=== PATIENT | male | born 1940 | race Caucasian/White ===

== ENCOUNTER 2023-08-23 13:18 | Outpatient (AMB) | payer MEDICARE, SELFPAY ==
[2023-08-23 13:19] VITALS: BP 128/70; PULSE 106; TEMP 36.3; O2SAT 96; BMI 28.1
--- NOTE | 2023-08-23 13:19 | MHC.OFFWIV ---
Intake Vital Signs 08/23/23 13:19 Height 5 ft 7 in Weight 179 lb 6 oz BMI 28.1 BP 128/70 Blood Pressure Location Rt brachial Position Sitting Pulse 106 H Pulse Source Pulse Oximeter Temp 97.4 F Temp Source Temporal Artery Scan Pulse Oximetry (%) 96 Oxygen Delivery Method Room Air Intake Visit Reasons: est/ openwound on side stomach Intake Note: Pt presents to the office today for a wound that reopened where he had a prior colostomy bag 7 years ago. Patient Tobacco Use Status: Never used Tobacco Allergies No Known Allergies Allergy (Verified 08/23/23 13:31) Medication List - Last Reconciled 08/23/23 by Audrey Bentley, FUEL CELL DESIGNER- alendronate 70 mg PO QWEEK aspirin (Adult Aspirin Regimen) 81 mg PO DAILY bicalutamide 50 mg PO DAILY clopidogrel 75 mg PO DAILY empagliflozin (Jardiance) 10 mg PO DAILY methenamine hippurate 1 g PO BID metoprolol succinate ER 50 mg PO DAILY omeprazole 40 mg PO DAILY telmisartan 80 mg PO DAILY HPI HPI Comments History of Present Illness Details Here today with complaints of an open area to his right lower quadrant reports that he had abdominal surgery 7 years ago. He has a scar in this area. A few days ago he noticed that the scar was opening. He has been applying Neosporin to the area. He denies any fever, chills. PFSH Social History Patient Tobacco Use Status: Never used Tobacco Review of Systems Const All systems reviewed & are unremarkable except as noted in HPI and below Physical Exam Vital Signs: Last Vital Signs Temp 97.4 F 08/23/23 13:19 Pulse 106 H 08/23/23 13:19 BP 128/70 08/23/23 13:19 Pulse Ox 96 08/23/23 13:19 Oxygen Delivery Method Room Air 08/23/23 13:19 BMI result Body Mass Index 28.1 GI Abdomen image: 1. scar with very superficial open area from friction caused by belt. There is some mild erythema extending beyond the well healed scar with some assoc warmth. No drainage. Area cleansed, Bacitracin and DCD applied. Assessment & Plan Assessment & Plan (1) Cellulitis: Code(s): L03.90 - Cellulitis, unspecified Qualifiers: Site of cellulitis: trunk Site of cellulitis of trunk: abdominal wall Qualified Code(s): L03.311 - Cellulitis of abdominal wall Plan: . Medications: New doxycycline hyclate 100 mg PO BID 7 days 14 caps 0RF Patient Instructions: Advised patient to avoid further friction. Remove belt. We are pants w/ soft waist. Cleanse the area with soap and water daily. Dry and then apply bacitracin and a dry clean dressing daily. Take antibiotics as directed. Return to the office in 1 week for re-evaluation, sooner as needed. Coding Level of Care Code Est Pt Level 3 (35540) Diagnoses Cellulitis of abdominal wall L03.311 Site of cellulitis: trunk Site of cellulitis of trunk: abdominal wall
== END 2023-08-23 13:34 | disposition home or self-care (01) ==
PROVIDERS: PCP Physician Assistant Medical; Visit Provider Nurse Practitioner Family
DX: L03.311 Cellulitis of abdominal wall (principal)
CPT/HCPCS: 99203; 99213

== ENCOUNTER 2023-11-18 09:40 | Outpatient (REF) | payer MEDICARE, SELFPAY ==
[2023-11-18 14:54] LABS: MANUAL DIFF FLAG NO
[2023-11-18 15:11] LABS: Basophils Percent Auto 0.8 % (0-2); Eosinophils Absolute Auto 0.2 X10*3/uL (0.0-0.4); Eosinophils Percent Auto 4.3 % (0-4); Hematocrit 36.7 % (42.0-52.0); Hemoglobin 12.5 g/dl (14.0-18.0); Imm Gran Abs Auto 0.03 X10*3/uL (0.00-0.03); Imm Gran Pct Auto 0.8 % (0.0-0.4); Lymphocytes Absolute Auto 0.6 X10*3/uL (1.2-4.9); Mean Corpuscular HGB Conc 34.1 g/dl (31.0-36.0); Mean Corpuscular Hemoglobin 28.1 pg (27.0-33.0); Mean Corpuscular Volume 82.5 fL (80.0-98.0); Monocytes Absolute Auto 0.4 X10*3/uL (0.1-1.2); Monocytes Percent Auto 9.2 % (2-11); Neutrophils Absolute Auto 2.7 x10*3/uL (2.0-8.3); Neutrophils Percent Auto 68.9 % (45-73); Platelet Count 124 X10*3/uL (160-400); Red Blood Count 4.45 X10*6/uL (4.60-5.80); Red Cell Distribution Width 14.2 % (11.0-16.0); White Blood Count 3.9 X10*3/uL (4.8-10.8)
[2023-11-18 15:53] LABS: Alanine Aminotransferase 14 U/L (0-40); Albumin Level 4.3 g/dL (3.5-5.0); Alkaline Phosphatase 85 U/L (39-117); Anion Gap 13 (12-20); Aspartate Amino Transferase 15 U/L (5-37); Bilirubin Total 0.4 mg/dL (0.0-1.0); Blood Urea Nitrogen 29 mg/dL (9-16); Calcium 9.6 mg/dL (8.4-10.2); Carbon Dioxide 24 mmol/L (22-29); Chloride 105 mmol/L (96-108); Estimated Glomerular Filt Rate > 60; Glucose Random 131 mg/dL (60-115); Potassium 4.1 mmol/L (3.3-5.1); Sodium 138 mmol/L (135-145); Total Protein 6.8 g/dL (6.5-8.0)
[2023-11-18 16:05] LABS: Estimated Average Glucose 126 mg/dL
[2023-11-18 16:11] LABS: TSH reflex Free T4 0.88 uIU/mL (0.32-4.0)
== END 2023-11-18 09:41 | disposition home or self-care (01) ==
LOC: HO.WFDLDS 09:40
PROVIDERS: PCP Physician Assistant Medical; Visit Provider Physician Assistant Medical
DX: I25.10 Atherosclerotic heart disease of native coronary artery without angina pectoris (principal); E78.00 Pure hypercholesterolemia, unspecified; E11.69 Type 2 diabetes mellitus with other specified complication; R42 Dizziness and giddiness; T81.30XA Disruption of wound, unspecified, initial encounter; M81.0 Age-related osteoporosis without current pathological fracture; C61 Malignant neoplasm of prostate; R41.3 Other amnesia
CPT/HCPCS: 36415; 80053; 83036; 84443; 85025; 96127; 99202

== ENCOUNTER 2023-11-18 09:40 | Outpatient (AMB) | payer MEDICARE, SELFPAY ==
--- NOTE | 2023-11-18 09:53 | MHC.PC.OV ---
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 Dizziness, hearing loss. See's ENT in April. Structural Drafter Required: No Accompanied by: Daughter Allergies No Known Allergies Allergy (Verified 08/23/23 13:31) Tobacco use date assessed: 11/18/23 Fall risk assessment: 1 Fall in past year Last assessed Fall Risk: 11/18/23 Dental Screening Dental Screen Date: 11/18/23 Did you have a dental visit in the last 12 months?: No Did you have a dental problem in the last 6 months where you did not have access to dental care?: No Was dental information given to patient?: Patient declined (Has dentures) HPI HPI Comments History of Present Illness Details This is an 83-year-old male with a past medical history of anemia, coronary artery disease, BPH, type 2 diabetes, hypertension, gastric ulcers, nodule of the right lung, osteoporosis and prostate cancer presenting to [facility]. He transferred from Dr. Negro at [facility]. He is here with his daughter. His other daughter, Pat Frost, wrote a detailed note to me. She usually accompanies him to appointments. Coronary artery disease-His statin was discontinued on the basis that it may be causing dizziness. Pat texted that his latest LDL level is 9. Patient had cardiac catheterizations 06/2022 with stents placed to RCA x2. Note indicates 2 additional stents were needed due to RCA dissection. He had an other cardiac catheterization due to chest pain in 12/18/2022. One of the stents had failed so he had stent #5 placed to RCA. Chest pain improved but did not resolve. Underwent another cardiac catheterization 07/19/2023. Chest pain escalated and so he had another catheterization on 10/20/2023 and they placed a stent to the LAD. Since then he has been chest pain-free. Quit smoking 47 years ago. Quit drinking 45 years ago. He has been evaluated for episodes of dizziness which started in 03/20/2023. Reportedly had a CT angio which revealed vertebral artery stenosis, but vascular said it had plenty of collateral circulation and was not of concern. Dizziness was episodic. Occurs for a few weeks and goes away. The dizziness initially improved after stopping his statin, but it came back. He saw Neurology at [facility] 10/14/2023, and they have refer to ENT for dizziness and hearing loss, but E[facility] of [facility] can not get him in for 6 months. Patient says dizziness is triggered by rapid head movements but can just happen when he is sitting. He describes it as feeling off balance. Patient also says he has had chronic hearing loss which worsened specifically in the left ear over the past couple of months. He endorses chronic tinnitus. He thinks this has become worse, too. His neurologist also referred him for a neuropsych evaluation due to memory issues. He has a hard time remembering fine details and following his medical history. The patient had diverticulitis which ruptured in 2019. He had a colostomy bag for about 3 months. He is seeing a plastic surgeon regarding his scar because of wound dehiscence. The appointment is 12/16/2023. Type II DM-managed by previous PCP. He uses a glucometer. AM BG never higher than 145. Last a1c 6.5%. Pat texted he is due. Recurrent UTIs, prostate cancer-diagnosed with prostate cancer in 2021. In remission. Followed by Dr. Scott. Osteoporosis-Treated with alendronate. They were questioning this diagnosis and whether or not he needs to take this medication. They said that he began this medication because of the antiandrogen treatment for prostate cancer. Unsure when last bone density test was done. ROS: Constitutional: No unexplained weight loss, fever, chills. Eyes: No vision changes Respiratory: No shortness of breath or cough. Cardiovascular: No chest pain or pedal edema. Gastrointestinal: No anorexia, nausea, vomiting or diarrhea. No abdominal pain Neurologic: No headache, syncope, unilateral weakness, ataxia Physical exam: Constitutional: Alert, in no distress. Head: Normocephalic. Eyes: Pupils are equal, round and reactive to light. Extraocular muscles intact. Ear, Nose and Throat: Canals clear. TMs normal. Normal nasal mucosa. No nasal discharge. No oral lesions. Neck: Supple, Full range of motion. No lymphadenopathy. No palpable thyroid masses. Respiratory: Clear to auscultation. Cardiovascular: S1 S2 regular. No murmurs. Gastrointestinal: Abdomen soft, non-tender, non-distended. Normal bowel sounds. No palpable masses. Scar on right lower abdomen with dehiscence. No bleeding, discharge, erythema or edema. Neurologic: No focal neurological deficits Extremities: Warm and well perfused. No clubbing, cyanosis or edema. Psychiatric: Normal mood and affect [facility] Medical History (Updated 11/19/23 @ 08:56 by GHAZAL Steinberg) Gastric ulcer Memory loss Bilateral hearing loss Bilateral tinnitus Lung nodule Anemia Prostate cancer Osteoporosis History of diverticulitis Wound dehiscence Dizziness Type 2 diabetes mellitus HLD (hyperlipidemia) CAD (coronary artery disease) Surgical History (Updated 11/19/23 @ 08:51 by GHAZAL Steinberg) Hx of bladder repair surgery Knee joint replacement status History of coronary artery stent placement History of colostomy reversal Social History Housing: Apartment Patient Tobacco Use Status: Never used Tobacco e-Cigarette/Vaping Use: Never Used Second Hand Smoke Exposure: No service: No Current occupational status: retired Current occupational exposures/hazards: No Cognitive needs: Yes (Memory issues) Hearing needs: Yes (Hearing loss ) Vision needs: Yes (glasses) Questionnaire PHQ-9 Over the last 2 weeks, how often have you been bothered by any of the following problems? 1. Little interest or pleasure in doing things: not at all 2. Feeling down, depressed, or hopeless: several days 3. Trouble falling or staying asleep, or sleeping too much: nearly every day 4. Feeling tired or having little energy: more than half the days 5. Poor appetite or overeating: not at all 6. Feeling bad about yourself - or that you are a failure or have let yourself or your family down: not at all 7. Trouble concentrating on things, such as reading the newspaper or watching television: nearly every day 8. Moving or speaking so slowly that other people could have noticed. Or the opposite - being so fidgety or restless that you have been moving around a lot more than usual: not at all 9. Thoughts that you would be better off or of hurting yourself in some way: not at all Total score: 9 Depression Screening Interpretation: Positive Depression Screening Done: Yes 30049 - PHQ-9 Billing: Yes Source: Developed by Drs. Ryan López, Jordan Camp and colleagues, with an educational katy from [employer]. Thrive Questionnaire Date Thrive assessed: 11/18/23 I am a: Patient Within the past 12 months, did the food you bought not last and you didn't have the money to get more?: Never true Within the past 12 months, did you worry whether your food would run out before you got money to buy more?: Never true Do you have trouble paying for medicines?: No Do you have trouble getting transportation to medical appointments?: No Do you have trouble paying your heating and electricity bill?: No Do you have trouble taking care of your child, family member or friend?: No Do you have trouble with day-to-day activities such as bathing, preparing meals, shopping, managing finances, etc.?: No Are you currently unemployed and looking for a job?: No Are you interested in more education?: No Please select the resources that you would like help with: None Currently or been in a relationship where the following occur: No concerns reported THRIVE Score: 0 AUDIT C Alcohol Use Questionnaire (AUDIT-C) 1. How often do you have a drink containing alcohol?: Never 3. How often do you have six or more drinks on one occasion?: Never Total Score: 0 NINA-7 AMB Questionnaire NINA-7 Date NINA - 7 assessed: 11/18/23 Feeling nervous, anxious, or on edge: 2 = More than half the days Not being able to stop or control worryin = Not at all Worrying too much about different things: 0 = Not at all Trouble relaxin = Not at all Being so restless that it is hard to sit still: 0 = Not at all Becoming easily annoyed or irritable: 0 = Not at all Feeling afraid as if something awful might happen: 0 = Not at all Total NINA-7 score (0-4 normal; 5-9 mild; 10-14 moderate; 15-21 severe): 2 Source: Developed by Drs. Ryan López, Jordan Camp and colleagues, with an educational katy from [employer]. NINA-7 Assessment Billing NINA-7 Assessment Tool: NINA-7 Assessment 72164 Physical exam (Primary Care) Vital Signs: Last Vital Signs Temp 97.6 F 11/18/23 10:03 Pulse 84 11/18/23 10:03 Resp 16 11/18/23 10:03 BP 108/70 11/18/23 10:03 Pulse Ox 97 11/18/23 10:03 Oxygen Delivery Method Room Air 11/18/23 10:03 BMI result Body Mass Index 28.0 Tobacco/Smoking Status: Tobacco use Status Tobacco use date assessed 11/18/23 11/18/23 09:59 Patient Tobacco Use Status Never used Tobacco 11/18/23 09:59 e-Cigarette/Vaping Use Never Used 11/18/23 09:59 PHQ-9: PHQ-9 Score PHQ-9: Total score 9 11/18/23 10:23 Depression Screening Interpretation: Positive Thrive Assessment: Date of Thrive Assessment Date Thrive assessed 11/18/23 11/18/23 10:09 Currently or been in a relationship where the following occur: No concerns reported Assessment and Plan Assessment & Plan (1) CAD (coronary artery disease): Code(s): I25.10 - Atherosclerotic heart disease of [place] coronary artery without angina pectoris Qualifiers: Coronary Disease-Associated Artery/Lesion type: [place] artery [place] vs. transplanted heart: [place] heart Associated angina: without angina Qualified Code(s): I25.10 - Atherosclerotic heart disease of [place] coronary artery without angina pectoris (2) HLD (hyperlipidemia): Code(s): E78.5 - Hyperlipidemia, unspecified Qualifiers: Hyperlipidemia type: pure hypercholesterolemia Qualified Code(s): E78.00 - Pure hypercholesterolemia, unspecified (3) Type 2 diabetes mellitus: Code(s): E11.9 - Type 2 diabetes mellitus without complications Qualifiers: Diabetes mellitus fdc insulin use: without equipment operator intermodal yard use Diabetes mellitus complication status: with other specified complication Qualified Code(s): E11.69 - Type 2 diabetes mellitus with other specified complication (4) Dizziness: Code(s): R42 - Dizziness and giddiness (5) Wound dehiscence: Code(s): T81.30XA - Disruption of wound, unspecified, initial encounter (6) Osteoporosis: Code(s): M81.0 - Age-related osteoporosis without current pathological fracture Qualifiers: Osteoporosis type: age-related Presence of current pathological fracture: without current pathological fracture Qualified Code(s): M81.0 - Age-related osteoporosis without current pathological fracture (7) Prostate cancer: Code(s): C61 - Malignant neoplasm of prostate (8) Memory loss: Code(s): R41.3 - Other amnesia Plan CAD, hyperlipidemia Continue management per Cardiology. Chest pain-free since most recent stent placed to LAD. Off statin although it sounds like this may not have been the cause of dizziness. Currently on Repatha with LDL well below goal. Dizziness Associated with increased hearing loss and tinnitus. Discussed possibility of Meniere's. Referred urgently to ENT in [place]. We discussed trial of vestibular rehab. They would like to proceed with this. Referral placed. Type 2 diabetes Continue home glucose monitoring and Jardiance. Check hemoglobin A1c. Wound dehiscence Upcoming appointment with Plastic surgery. Osteoporosis Reviewed medical record. Documented as osteoporosis of the femoral neck. Continue alendronate at this time. Prostate cancer Currently on antiandrogen treatment. Continue management per urology. Memory loss Seen by Neurology. Awaiting neuropsych evaluation. Follow up routinely in 3 months or sooner as needed. Orders: Orders Hemoglobin A1c 11/18/23 E11.9 - Type 2 diabetes mellitus without complications, E78.5 - Hyperlipidemia, unspecified, I25.10 - Atherosclerotic heart disease of [place] coronary artery without angina pectoris Complete Blood Count Auto Diff 11/18/23 E11.9 - Type 2 diabetes mellitus without complications, E78.5 - Hyperlipidemia, unspecified, I25.10 - Atherosclerotic heart disease of [place] coronary artery without angina pectoris Comprehensive Met. Panel 11/18/23 E11.9 - Type 2 diabetes mellitus without complications, E78.5 - Hyperlipidemia, unspecified, I25.10 - Atherosclerotic heart disease of [place] coronary artery without angina pectoris TSH reflex Free T4 11/18/23 E78.5 - Hyperlipidemia, unspecified, R42 - Dizziness and giddiness PT Evaluation and Treatment Today H81.393 - Other peripheral vertigo, bilateral Referrals Ear/Nose/Throat Referral H91.90 - Unspecified hearing loss, unspecified ear, H93.19 - Tinnitus, unspecified ear, R42 - Dizziness and giddiness Coding Level of Care Code New Pt Level 5 (76600) Complex EM visit Add On G2211 Diagnoses Coronary artery disease involving [place] coronary artery of [place] heart without angina pectoris I25.10 Coronary Disease-Associated Artery/Lesion type: [place] artery [place] vs. transplanted heart: [place] heart Associated angina: without angina Pure hypercholesterolemia E78.00 Hyperlipidemia type: pure hypercholesterolemia Type 2 diabetes mellitus with other specified complication, without long-term current use of insulin E11.69 Diabetes mellitus equipment operator intermodal yard insulin use: without equipment operator intermodal yard use Diabetes mellitus complication status: with other specified complication Dizziness R42 Wound dehiscence T81.30XA Age-related osteoporosis without current pathological fracture M81.0 Osteoporosis type: age-related Presence of current pathological fracture: without current pathological fracture Prostate cancer C61 Memory loss R41.3 Additional Codes NINA-7 Assessment Billing - NINA-7 Assessment Tool: NINA-7 Assessment 93124 ([id number]) Time Spent (min) 60 Comment seeing patient, reviewing records, updating chart, completing documentation
[2023-11-18 10:03] VITALS: BP 108/70; PULSE 84; RESP 16; TEMP 36.4; O2SAT 97; BMI 28.0
== END 2023-11-18 10:39 | disposition home or self-care (01) ==
PROVIDERS: PCP Physician Assistant Medical; Visit Provider Physician Assistant Medical
DX: I25.10 Atherosclerotic heart disease of native coronary artery without angina pectoris (principal); E11.69 Type 2 diabetes mellitus with other specified complication; C61 Malignant neoplasm of prostate; E78.00 Pure hypercholesterolemia, unspecified; R42 Dizziness and giddiness; T81.30XA Disruption of wound, unspecified, initial encounter; M81.0 Age-related osteoporosis without current pathological fracture; R41.3 Other amnesia

== ENCOUNTER 2023-12-03 10:36 | Outpatient (REF) | payer MEDICARE, SELFPAY ==
[2023-12-03 13:59] LABS: MANUAL DIFF FLAG NO
[2023-12-03 14:02] LABS: Basophils Percent Auto 0.9 % (0-2); Eosinophils Absolute Auto 0.1 X10*3/uL (0.0-0.4); Eosinophils Percent Auto 3.1 % (0-4); Hematocrit 38.1 % (42.0-52.0); Hemoglobin 13.2 g/dl (14.0-18.0); Imm Gran Abs Auto 0.02 X10*3/uL (0.00-0.03); Imm Gran Pct Auto 0.4 % (0.0-0.4); Immature Retic Fraction 14.4 % (2.3-13.4); Lymphocytes Absolute Auto 0.6 X10*3/uL (1.2-4.9); Lymphocytes Percent Auto 13.7 % (20-40); Mean Corpuscular HGB Conc 34.6 g/dl (31.0-36.0); Mean Corpuscular Hemoglobin 28.8 pg (27.0-33.0); Mean Platelet Volume 10.5 fL (9.4-12.4); Monocytes Absolute Auto 0.5 X10*3/uL (0.1-1.2); Neutrophils Absolute Auto 3.3 x10*3/uL (2.0-8.3); Neutrophils Percent Auto 71.9 % (45-73); Platelet Count 153 X10*3/uL (160-400); Red Blood Count 4.59 X10*6/uL (4.60-5.80); Red Cell Distribution Width 14.3 % (11.0-16.0); Retic HGB Equivalent 32.1 pg (30.0-35.0); Reticulocyte Percent 2.2 % (0.5-1.8); Reticulocytes Absolute 0.103 X10*6/uL (0.026-0.095); White Blood Count 4.5 X10*3/uL (4.8-10.8)
[2023-12-03 14:25] LABS: Iron 62 mcg/dL (45-160); Percent Iron Saturation 19 % (15-50); Total Iron Binding Capacity 322 mcg/dL (228-428); Unsaturated Iron Binding 260 ug/dL
[2023-12-03 14:35] LABS: Ferritin 37 ng/mL (20-250)
[2023-12-03 14:45] LABS: Folate 11.7 ng/mL (> or = 4.0); Vitamin B12 656 pg/mL (200-900)
== END 2023-12-03 10:37 | disposition home or self-care (01) ==
LOC: HO.WFDLDS 10:36
PROVIDERS: Visit Provider Physician Assistant Medical
DX: D61.818 Other pancytopenia (principal)
CPT/HCPCS: 36415; 82607; 82728; 82746; 83540; 85025; 85045

== ENCOUNTER 2023-12-07 07:52 | Outpatient (RCR) | payer MEDICARE, SELFPAY ==
[2023-12-07 07:59] VITALS: BP 153/77; PULSE 90
--- NOTE | 2023-12-07 09:52 | MHC.PT.EP ---
[facility] Office [place] Office [place] Office [address] [place] [address] Dr Manuel Palmer [address] [phone] F: [phone] F: [phone] F: [phone] F: [phone] Physical Therapy Plan of Care Date of Evaluation: Date of Surgery: Diagnosis: other peripheral vertigo, B Assessment: 83 y/o male referred to PT with B peripheral vertigo. Describes dizziness as a 'fog' and 'my brain is not fully concentrating. This has been going on for about one year and sx are constant but vary in severity. He also notes B ear tinnitus for several years and hearing loss. Of note, he has had 6 cardiac stents in the past 2 years, prostate CA, osteoporosis, cervical fusion, and HTN. Examination shows mildly limited cervical AROM, normal VBI test, normal oculomotor testing, negative head thrust, 23/24 DGI (mild disruption with horizontal head turns), and negative for BPPV all positions. Frequency and Duration: The patient will be seen Short Term Goals: Retirement Goals: PT not indicated Treatment Plan: Modalities to reduce pain, spasms and effusion. Manual therapy to restore motion and function. Therapeutic exercise to improve strength and flexibility. Neuromuscular re-education for posture and balance. Therapeutic activities to return to functional activities of daily living. Electronically signed by: Phuong Timmons PT Please sign and return to therapist. Thank you for your referral.
--- NOTE | 2023-12-07 10:38 | MHC.PT.EP ---
[facility] [place] Office [place] Office [place] Office [address] Manuel Palmer [address] [phone] F: [phone] F: [phone] F: [phone] F: [phone] Physical Therapy Plan of Care Date of Evaluation: 12/07/23 Date of Surgery: Diagnosis: other peripheral vertigo, B Assessment: 83 y/o male referred to PT with B peripheral vertigo. Describes dizziness as a 'fog' and 'my brain is not fully concentrating. This has been going on for about one year and sx are constant but vary in severity. He also notes B ear tinnitus for several years and hearing loss. Of note, he has had 6 cardiac stents in the past 2 years, prostate CA, osteoporosis, cervical fusion, and HTN. Examination shows mildly limited cervical AROM, normal VBI test, normal oculomotor testing, negative head thrust, 23/24 DGI (mild disruption with horizontal head turns), and negative for BPPV all positions. At this time, his dizziness does not appear to be presenting from mechanical nature such as BPPV. Educated pt on findings and PT not indicated at this time. Recommended he f/u with MD. Frequency and Duration: The patient will be seen Short Term Goals: Half-Way Goals: PT not indicated Treatment Plan: Modalities to reduce pain, spasms and effusion. Manual therapy to restore motion and function. Therapeutic exercise to improve strength and flexibility. Neuromuscular re-education for posture and balance. Therapeutic activities to return to functional activities of daily living. Electronically signed by: Phuong Timmons PT Please sign and return to therapist. Thank you for your referral.
--- NOTE | 2024-01-10 14:14 | MHC.PT.DC ---
[facility] [place] Office [place] Office [place] Office [address] Manuel Palmer [address] [phone] F: [phone] F: [phone] F: [phone] F: [phone] Physical Therapy Discharge Report Diagnosis: other peripheral vertigo, B Date of Surgery: Date of Evaluation: 12/07/23 Date of Discharge: 01/10/24 Treatments to Date: 1 Cancellations to Date: 0 No Shows to Date: 0 Discharge Status: Recommend MD Follow-up Discharge Summary: Recommend pt f/u with MD as sx do not appear to be mechanical in nature. Examination showed mildly limited cervical AROM, normal VBI test, normal oculomotor testing, negative head thrust, 23/24 DGI (mild disruption with horizontal head turns), and negative for BPPV all positions. Electronically signed by: Phuong Timmons PT Please sign and return to therapist. Thank you for your referral.
== END 2024-01-10 14:14 | disposition home or self-care (01) ==
LOC: HO.PT 07:52
PROVIDERS: PCP Physician Assistant Medical; Visit Provider Physician Assistant Medical
DX: H81.393 Other peripheral vertigo, bilateral (principal)
CPT/HCPCS: 97112; 97162

== ENCOUNTER → 2024-01-05 13:52 | Outpatient (BNV) | payer MEDICARE, SELFPAY | PROVIDERS: PCP Physician Assistant Medical; Visit Provider Internal Medicine | DX: D61.818 Other pancytopenia (principal) | CPT/HCPCS: 99204 ==

== ENCOUNTER 2024-01-10 09:53 | Outpatient (AMB) | payer MEDICARE, SELFPAY ==
--- NOTE | 2024-01-10 09:59 | A.OFFPC_ITS ---
Vital Signs 01/10/24 10:04 Height 5 ft 7 in Weight 177 lb 8 oz BMI 27.8 BP 110/60 Blood Pressure Location Lt brachial Position Sitting Pulse 81 Pulse Source Pulse Oximeter Pulse Oximetry (%) 96 Oxygen Delivery Method Room Air Intake Visit Reasons: Dizziness Intake Note: Dizziness for the last week. Allergies No Known Allergies Allergy (Verified 01/10/24 09:59) Tobacco use date assessed: 11/18/23 Dental Screening Dental Screen Date: 11/18/23 HPI HPI Comments History of Present Illness Details This is an 83-year-old male with a past medical history of anemia, coronary artery disease, BPH, type 2 diabetes, hypertension, gastric ulcers, nodule of the right lung, osteoporosis and prostate cancer presenting for reevaluation of dizziness. This is his second visit with me. He transferred from Dr. Negro at [facility]. He is here with his daughter, Erin. His other daughter, Pat Frost, also accompanies him to visits frequently. He endorses increasing frequency of dizzy spells and intensity. Feels off balance. No spinning. Feels like equilibrium is off. Endorses hearing loss that is worse on the left side and ringing in his left ear. ENT appointment is 03/09/23 in [place]. I had placed it urgently though. He took meclizine for a couple of days this weekend, and he thinks it may have helped a little. He did not take it today and feels worse. Moving triggers dizziness symptoms. When he is just sitting still or lying in bed he feels okay. Once he sits up he can not stand upright away because he is dizzy. He drinks a lot of coffee. He's had three cups of coffee this morning. He follows a low sodium diet. He went to PT, and they told him it was not vertigo and did not need vesibular rehab. They would like a 2nd opinion. He had a neuropsych evaluation done at [address] [place] [address]. There has been no follow up with neurology. Pat texted that it showed mild cognitive impairment. Pat wants to try stopping Jardiance since it was started around the same times the symptoms developed. She says it was discussed with Cardiology. Home glucose readings less 150. Last a1c 6%. Previously documented: He has been evaluated for episodes of dizziness which started in 03/20/2023. Reportedly had a CT angio which revealed vertebral artery stenosis, but vascular said it had plenty of collateral circulation and was not of concern. Dizziness was episodic. Occurs for a few weeks and goes away. The dizziness initially improved after stopping his statin, but it came back. He saw Neurology at [facility] 10/14/2023, and they have refer to ENT for dizziness and hearing loss, but [facility] can not get him in for 6 months. Patient says dizziness is triggered by rapid head movements but can just happen when he is sitting. He describes it as feeling off balance. Patient also says he has had chronic hearing loss which worsened specifically in the left ear over the past couple of months. He endorses chronic tinnitus. He thinks this has become worse, too. His neurologist also referred him for a neuropsych evaluation due to memory issues. He has a hard time remembering fine details and following his medical history. Coronary artery disease-His statin was discontinued on the basis that it may be causing dizziness. Recent LDL level was 9. He is on Repatha. Patient had cardiac catheterizations 06/2022 with stents placed to RCA x2. Note indicates 2 additional stents were needed due to RCA dissection. He had an other cardiac catheterization due to chest pain in 12/18/2022. One of the stents had failed so he had stent #5 placed to RCA. Chest pain improved but did not resolve. Underwent another cardiac catheterization 07/19/2023. Chest pain escalated and so he had another catheterization on 10/20/2023 and they placed a stent to the LAD. Since then he has been chest pain-free. Quit smoking 47 years ago. Quit drinking 45 years ago. Recurrent UTIs, prostate cancer-diagnosed with prostate cancer in 2021. In remission. Followed by Dr. Scott. ROS: Constitutional: No unexplained weight loss, fever, chills. Eyes: No vision changes Respiratory: No shortness of breath or cough. Cardiovascular: No chest pain or pedal edema. Gastrointestinal: No anorexia, nausea, vomiting or diarrhea. No abdominal pain Neurologic: No headache, syncope, unilateral weakness, ataxia Physical exam: Constitutional: Alert, in no distress. Head: Normocephalic. Eyes: Pupils are equal, round and reactive to light. Extraocular muscles intact. Ear, Nose and Throat: Canals clear. TMs normal. Normal nasal mucosa. No nasal discharge. No oral lesions. Neck: Supple, Full range of motion. No lymphadenopathy. No palpable thyroid masses. Respiratory: Clear to auscultation. Cardiovascular: S1 S2 regular. No murmurs. Neurologic: No focal neurological deficits Extremities: Warm and well perfused. No clubbing, cyanosis or edema. Psychiatric: Normal mood and affect [facility] Medical History (Updated 01/10/24 @ 10:45 by GHAZAL Steinberg) Vertigo Pancytopenia Gastric ulcer Memory loss Bilateral hearing loss Bilateral tinnitus Lung nodule Anemia Prostate cancer Osteoporosis History of diverticulitis Wound dehiscence Dizziness Type 2 diabetes mellitus HLD (hyperlipidemia) CAD (coronary artery disease) Surgical History Hx of bladder repair surgery Knee joint replacement status History of coronary artery stent placement History of colostomy reversal Social History (Updated 01/10/24 @ 10:09 by Katelin Avila CMA) Household Members: None Housing: Apartment Alcohol intake: former Patient Tobacco Use Status: Never used Tobacco e-Cigarette/Vaping Use: Never Used Second Hand Smoke Exposure: No Use of substances other than those prescribed or required for medical reasons: No service: No Current occupational status: retired Current occupational exposures/hazards: No Gender identity: Male Cognitive needs: Yes (Memory issues) Hearing needs: Yes (Hearing loss ) Vision needs: Yes (glasses) Questionnaire PHQ-9 Over the last 2 weeks, how often have you been bothered by any of the following problems? 1. Little interest or pleasure in doing things: not at all 2. Feeling down, depressed, or hopeless: not at all 3. Trouble falling or staying asleep, or sleeping too much: nearly every day 4. Feeling tired or having little energy: several days 5. Poor appetite or overeating: nearly every day 6. Feeling bad about yourself - or that you are a failure or have let yourself or your family down: not at all 7. Trouble concentrating on things, such as reading the newspaper or watching television: nearly every day 8. Moving or speaking so slowly that other people could have noticed. Or the opposite - being so fidgety or restless that you have been moving around a lot more than usual: not at all 9. Thoughts that you would be better off or of hurting yourself in some way: not at all Total score: 10 Source: Developed by Drs. Ryan López, Jordan Camp and colleagues, with an educational katy from [email or web address]. Thrive Questionnaire Date Thrive assessed: 11/18/23 I am a: Patient What is your living situation today?: I have a steady place to live Within the past 12 months, did the food you bought not last and you didn't have the money to get more?: Never true Within the past 12 months, did you worry whether your food would run out before you got money to buy more?: Never true Do you have trouble paying for medicines?: No Do you have trouble getting transportation to medical appointments?: No Do you have trouble paying your heating and electricity bill?: No Do you have trouble taking care of your child, family member or friend?: No Do you have trouble with day-to-day activities such as bathing, preparing meals, shopping, managing finances, etc.?: No Are you currently unemployed and looking for a job?: No Are you interested in more education?: No Please select the resources that you would like help with: None Currently or been in a relationship where the following occur: No concerns reported THRIVE Score: 0 AUDIT C Alcohol Use Questionnaire (AUDIT-C) 1. How often do you have a drink containing alcohol?: Never Total Score: 0 NINA-7 AMB Questionnaire NINA-7 Date NINA - 7 assessed: 11/18/23 Feeling nervous, anxious, or on edge: 0 = Not at all Not being able to stop or control worryin = Not at all Worrying too much about different things: 0 = Not at all Trouble relaxin = Not at all Being so restless that it is hard to sit still: 0 = Not at all Becoming easily annoyed or irritable: 0 = Not at all Feeling afraid as if something awful might happen: 0 = Not at all Total NINA-7 score (0-4 normal; 5-9 mild; 10-14 moderate; 15-21 severe): 0 Source: Developed by Drs. Ryan López, Jordan Camp and colleagues, with an educational katy from [email or web address]. Physical exam (Primary Care) Vital Signs: Last Vital Signs Pulse 81 01/10/24 10:04 BP 110/60 01/10/24 10:04 Pulse Ox 96 01/10/24 10:04 Oxygen Delivery Method Room Air 01/10/24 10:04 BMI result Body Mass Index 27.8 Tobacco/Smoking Status: Tobacco use Status Tobacco use date assessed 11/18/23 01/10/24 10:04 Patient Tobacco Use Status Never used Tobacco 01/10/24 10:09 e-Cigarette/Vaping Use Never Used 01/10/24 10:09 PHQ-9: PHQ-9 Score PHQ-9: Total score 10 01/10/24 10:20 Thrive Assessment: Date of Thrive Assessment Date Thrive assessed 11/18/23 01/10/24 10:04 Currently or been in a relationship where the following occur: No concerns reported Coding Level of Care Code Est Pt Level 5 (71457) Complex EM visit Add On G2211 Diagnoses Vertigo R42 Bilateral tinnitus H93.13 Bilateral hearing loss H91.93 Memory loss R41.3 Type 2 diabetes mellitus with other specified complication, without long-term current use of insulin E11.69 Diabetes mellitus fdc insulin use: without fdc use Diabetes mellitus complication status: with other specified complication Coronary artery disease involving [place] coronary artery of [place] heart without angina pectoris I25.10 Coronary Disease-Associated Artery/Lesion type: [place] artery [place] vs. transplanted heart: [place] heart Associated angina: without angina Time Spent (min) 45 Comment Chart review, direct patient care, coordination for appointment, completing documentation Assessment & Plan Assessment & Plan (1) Vertigo: Code(s): R42 - Dizziness and giddiness Category: Medical (2) Bilateral tinnitus: Code(s): H93.13 - Tinnitus, bilateral Category: Medical (3) Bilateral hearing loss: Code(s): H91.93 - Unspecified hearing loss, bilateral Category: Medical (4) Memory loss: Code(s): R41.3 - Other amnesia Category: Medical (5) Type 2 diabetes mellitus: Code(s): E11.9 - Type 2 diabetes mellitus without complications Category: Medical Qualifiers: Diabetes mellitus fdc insulin use: without long term care pharmacist use Diabetes mellitus complication status: with other specified complication Qualified Code(s): E11.69 - Type 2 diabetes mellitus with other specified complication (6) CAD (coronary artery disease): Code(s): I25.10 - Atherosclerotic heart disease of [place] coronary artery without angina pectoris Category: Medical Qualifiers: Coronary Disease-Associated Artery/Lesion type: [place] artery [place] vs. transplanted heart: [place] heart Associated angina: without angina Qualified Code(s): I25.10 - Atherosclerotic heart disease of [place] coronary artery without angina pectoris Plan I told him I do not think Jardiance is the cause, but he can try stopping it for a week and they will send a message via the portal to let me know if symptoms resolve or not. He will continue to monitor his blood sugars. I reiterated that his symptoms could be consistent with Meniere's disease, and he should see ENT so I will contact them to see if we can move up his appointment. He can continue meclizine and increase to 25 mg 3 times daily as needed. Re viewed it can cause sedation and drowsiness. The patient does not drive. I provided a new referral for vestibular rehab that they can take with them today. I also advised him to decrease his caffeine intake slowly but to avoid abrupt cessation which can cause withdrawal symptoms. Continue low-sodium diet. They will send me the neuropsych evaluation via the patient portal. He has a follow up scheduled with me in 1 month. Medications: New meclizine 25 mg PO TID 90 tabs 0RF dizziness Patient Instructions: Hold Jardiance one week to see if symptoms resolve. Please send message via portal to let me know the outcome. Meclizine 25 mg three times daily. I will call ENT. Please slowly decrease caffeine intake. Please send neuropsych eval result through portal. Lucrecia Delgadillo MA - physician I work with here.
[2024-01-10 10:04] VITALS: BP 110/60; PULSE 81; O2SAT 96; BMI 27.8
== END 2024-01-10 10:55 | disposition home or self-care (01) ==
PROVIDERS: PCP Physician Assistant Medical; Visit Provider Physician Assistant Medical
DX: R42 Dizziness and giddiness (principal); E11.69 Type 2 diabetes mellitus with other specified complication; H93.13 Tinnitus, bilateral; H91.93 Unspecified hearing loss, bilateral; R41.3 Other amnesia; I25.10 Atherosclerotic heart disease of native coronary artery without angina pectoris

== ENCOUNTER → 2024-01-10 09:53 | Outpatient (BNVA) | payer MEDICARE, SELFPAY | PROVIDERS: PCP Physician Assistant Medical; Visit Provider Physician Assistant Medical | DX: R42 Dizziness and giddiness (principal); H93.13 Tinnitus, bilateral; H91.93 Unspecified hearing loss, bilateral; R41.3 Other amnesia; E11.69 Type 2 diabetes mellitus with other specified complication; I25.10 Atherosclerotic heart disease of native coronary artery without angina pectoris; I10 Essential (primary) hypertension | CPT/HCPCS: 96127; 99212 ==

== ENCOUNTER 2024-02-14 16:11 | Outpatient (AMB) | payer MEDICARE, SELFPAY ==
--- NOTE | 2024-02-14 16:13 | MHC.PC.OV ---
Vital Signs 02/14/24 16:16 Height 5 ft 7 in Weight 182 lb 4 oz BMI 28.5 BP 118/68 Blood Pressure Location Rt brachial Position Sitting Respiration 12 Pulse 69 Pulse Source Pulse Oximeter Pulse Oximetry (%) 99 Oxygen Delivery Method Room Air Intake Visit Reasons: 30 min complex follow up Intake Note: follow up Property Management Supervisor Required: No Allergies No Known Allergies Allergy (Verified 02/14/24 16:14) Tobacco use date assessed: 11/18/23 Fall risk assessment: No Falls in past year Last assessed Fall Risk: 02/14/24 Dental Screening Dental Screen Date: 11/18/23 HPI HPI Comments History of Present Illness Details This is an 83-year-old male with a past medical history of anemia, coronary artery disease, BPH, type 2 diabetes, hypertension, gastric ulcers, nodule of the right lung, osteoporosis and prostate cancer presenting for follow up. He is not accompanied to the visit today. I see in the portal his daughter, Pat, message me a few things about today. He has not experienced dizziness since he started meclizine 25 mg b.i.d.. She is wondering if the dose can be decreased or tapered. He did not do vestibular rehab, but she is wondering if it is necessary since the symptoms have resolved. He saw Dr. Becerra, and he says he has the results from his hearing test at home, but he does not know what they say. He had a neuropsych evaluation which was consistent with mild cognitive impairment and mild depression. Recommendations were reviewed with his family at that time. He has a geriatric consult scheduled 03/09/2024. Coronary artery disease-he started cardiac rehab last week. He reported what he describes as mild chest discomfort after eating a big meal this past weekend. This is also noted in Pat's message. He says he has a hiatal hernia, and Cardiology also does not expect him to be 100% chest pain-free, and they are monitoring. He had had cardiac rehab this morning and has had no chest discomfort today. He denies shortness of breath or dizziness. His statin was discontinued on the basis that it might have been contributing to prior dizziness. Last LDL level was 9. He is on Repatha. Patient had cardiac catheterizations 06/2022 with stents placed to RCA x2. Note indicates 2 additional stents were needed due to RCA dissection. He had an other cardiac catheterization due to chest pain in 12/18/2022. One of the stents had failed so he had stent #5 placed to RCA. Chest pain improved but did not resolve. Underwent another cardiac catheterization 07/19/2023. Chest pain escalated and so he had another catheterization on 10/20/2023 and they placed a stent to the LAD. Quit smoking 47 years ago. Quit drinking 45 years ago. His most recent hemoglobin A1c was 6%. Recurrent UTIs, prostate cancer-diagnosed with prostate cancer in 2021. In remission. Followed by Dr. Scott. Patient also mentions ongoing problem again of wound dehiscence on surgical scars on his abdomen. He was scheduled to see Plastic surgery in November, but he says he did not have that appointment. ROS: Constitutional: No unexplained weight loss, fever, chills. Eyes: No vision changes Respiratory: No shortness of breath or cough. Cardiovascular: No chest pain or pedal edema. Gastrointestinal: No anorexia, nausea, vomiting or diarrhea. No abdominal pain Neurologic: No headache, syncope, unilateral weakness, ataxia Physical exam: Constitutional: Alert, in no distress. Eyes: Pupils are equal, round and reactive to light. Extraocular muscles intact. Ear, Nose and Throat: Canals clear. TMs normal. Normal nasal mucosa. No nasal discharge. No oral lesions. Neck: Supple, Full range of motion. No lymphadenopathy. Respiratory: Clear to auscultation. Cardiovascular: S1 S2 regular. No murmurs. Extremities: Warm and well perfused. No clubbing, cyanosis or edema. Psychiatric: Normal mood and affect Skin: There is 1 small area of wound dehiscence on each of the scars on his lower abdomen. No discharge, warmth, swelling. [facility] Medical History (Updated 01/17/24 @ 16:12 by GHAZAL Steinberg) Mild cognitive impairment Vertigo Pancytopenia Gastric ulcer Memory loss Bilateral hearing loss Bilateral tinnitus Lung nodule Anemia Prostate cancer Osteoporosis History of diverticulitis Wound dehiscence Dizziness Type 2 diabetes mellitus HLD (hyperlipidemia) CAD (coronary artery disease) Surgical History Hx of bladder repair surgery Knee joint replacement status History of coronary artery stent placement History of colostomy reversal Social History (Updated 01/10/24 @ 10:09 by Katelin Avila CMA) Household Members: None Housing: Apartment Alcohol intake: former Patient Tobacco Use Status: Never used Tobacco e-Cigarette/Vaping Use: Never Used Second Hand Smoke Exposure: No service: No Current occupational status: retired Current occupational exposures/hazards: No Gender identity: Male Cognitive needs: Yes (Memory issues) Hearing needs: Yes (Hearing loss ) Vision needs: Yes (glasses) Questionnaire PHQ-9 Over the last 2 weeks, how often have you been bothered by any of the following problems? 81824 - PHQ-9 Billing: Patient declined-do not bill Source: Developed by Drs. Ryan López, Jordan Camp and colleagues, with an educational katy from [employer]. Thrive Questionnaire Date Thrive assessed: 02/14/24 I am a: Patient What is your living situation today?: I have a steady place to live Within the past 12 months, did the food you bought not last and you didn't have the money to get more?: Never true Within the past 12 months, did you worry whether your food would run out before you got money to buy more?: Never true Do you have trouble paying for medicines?: No Do you have trouble getting transportation to medical appointments?: No Do you have trouble paying your heating and electricity bill?: No Do you have trouble taking care of your child, family member or friend?: No Do you have trouble with day-to-day activities such as bathing, preparing meals, shopping, managing finances, etc.?: No Are you currently unemployed and looking for a job?: No Are you interested in more education?: No Please select the resources that you would like help with: None Currently or been in a relationship where the following occur: No concerns reported THRIVE Score: 0 NINA-7 AMB Questionnaire NINA-7 Date NINA - 7 assessed: 11/18/23 Source: Developed by Drs. Ryan López, Emily Hernandez, Jordan Kuhn and colleagues, with an educational katy from [employer]. Physical exam (Primary Care) Vital Signs: Last Vital Signs Pulse 69 02/14/24 16:16 Resp 12 02/14/24 16:16 BP 118/68 02/14/24 16:16 Pulse Ox 99 02/14/24 16:16 Oxygen Delivery Method Room Air 02/14/24 16:16 BMI result Body Mass Index 28.5 Tobacco/Smoking Status: Tobacco use Status Tobacco use date assessed 11/18/23 02/14/24 16:17 Patient Tobacco Use Status Never used Tobacco 02/14/24 16:17 e-Cigarette/Vaping Use Never Used 02/14/24 16:17 Thrive Assessment: Date of Thrive Assessment Date Thrive assessed 02/14/24 02/14/24 16:17 Currently or been in a relationship where the following occur: No concerns reported Coding Level of Care Code Est Pt Level 4 (25102) Complex EM visit Add On G2211 Diagnoses Vertigo R42 Bilateral tinnitus H93.13 Bilateral hearing loss H91.93 Memory loss R41.3 Type 2 diabetes mellitus with other specified complication, without long-term current use of insulin E11.69 Diabetes mellitus intermission coordinator insulin use: without intermission coordinator use Diabetes mellitus complication status: with other specified complication Coronary artery disease involving [place] coronary artery of [place] heart without angina pectoris I25.10 Coronary Disease-Associated Artery/Lesion type: [place] artery [place] vs. transplanted heart: [place] heart Associated angina: without angina Assessment & Plan Assessment & Plan (1) Vertigo: Code(s): R42 - Dizziness and giddiness Category: Medical (2) Bilateral tinnitus: Code(s): H93.13 - Tinnitus, bilateral Category: Medical (3) Bilateral hearing loss: Code(s): H91.93 - Unspecified hearing loss, bilateral Category: Medical (4) Memory loss: Code(s): R41.3 - Other amnesia Category: Medical (5) Type 2 diabetes mellitus: Code(s): E11.9 - Type 2 diabetes mellitus without complications Category: Medical Qualifiers: Diabetes mellitus intermission coordinator insulin use: without alf use Diabetes mellitus complication status: with other specified complication Qualified Code(s): E11.69 - Type 2 diabetes mellitus with other specified complication (6) CAD (coronary artery disease): Code(s): I25.10 - Atherosclerotic heart disease of [place] coronary artery without angina pectoris Category: Medical Qualifiers: Coronary Disease-Associated Artery/Lesion type: [place] artery [place] vs. transplanted heart: [place] heart Associated angina: without angina Qualified Code(s): I25.10 - Atherosclerotic heart disease of [place] coronary artery without angina pectoris Plan We can decrease meclizine 12.5 mg twice daily and monitor for recurrent vertigo symptoms. I will also see if she can send me the results of the hearing test he has at home. We can hold off on vestibular rehab for now and reconsider if symptoms return after tapering meclizine down. He will continue with cardiac rehab per Cardiology. He will continue his current medications. He will return for lab work. He has a geriatric consult scheduled in early March. Generally family does accompany him to visits which is recommended. They were also going to seek social support through the senior center. Follow up in 3 months. Orders: Orders Hemoglobin A1c Today E11.69 - Type 2 diabetes mellitus with other specified complication, E11.9 - Type 2 diabetes mellitus without complications Lipid Panel Today E11.69 - Type 2 diabetes mellitus with other specified complication, E78.5 - Hyperlipidemia, unspecified Basic Metabolic Panel Today E11.69 - Type 2 diabetes mellitus with other specified complication
[2024-02-14 16:16] VITALS: BP 118/68; PULSE 69; RESP 12; O2SAT 99; BMI 28.5
== END 2024-02-14 16:51 | disposition home or self-care (01) ==
PROVIDERS: PCP Physician Assistant Medical; Visit Provider Physician Assistant Medical
DX: E11.69 Type 2 diabetes mellitus with other specified complication (principal); R42 Dizziness and giddiness; H93.13 Tinnitus, bilateral; H91.93 Unspecified hearing loss, bilateral; R41.3 Other amnesia; I25.10 Atherosclerotic heart disease of native coronary artery without angina pectoris

== ENCOUNTER → 2024-02-14 16:11 | Outpatient (BNVA) | payer MEDICARE, SELFPAY | PROVIDERS: PCP Physician Assistant Medical; Visit Provider Physician Assistant Medical | DX: R42 Dizziness and giddiness (principal); H93.13 Tinnitus, bilateral; H91.93 Unspecified hearing loss, bilateral; R41.3 Other amnesia; E11.69 Type 2 diabetes mellitus with other specified complication; I25.10 Atherosclerotic heart disease of native coronary artery without angina pectoris | CPT/HCPCS: 99212 ==

== ENCOUNTER 2024-03-17 08:27 | Outpatient (REF) | payer MEDICARE, SELFPAY ==
[2024-03-17 11:47] LABS: Estimated Average Glucose 151 mg/dL; Hemoglobin A1C 170.0031 umol/L; Hemoglobin A1c % 6.9 % (<6.0); Total Hemoglobin (HGBA1C) 3249.5814 umol/L
[2024-03-17 11:48] LABS: Anion Gap 12 (12-20); Blood Urea Nitrogen 29 mg/dL (9-16); Calcium 9.8 mg/dL (8.4-10.2); Carbon Dioxide 24 mmol/L (22-29); Chloride 109 mmol/L (96-108); Cholesterol 115 mg/dL (<200); Estimated Glomerular Filt Rate > 60; Glucose Random 195 mg/dL (60-115); HDL Cholesterol 36 mg/dL (>40); LDL Cholesterol Calculated 41 mg/dL (<100); Potassium 4.4 mmol/L (3.3-5.1); Sodium 141 mmol/L (135-145); Triglycerides 191 mg/dL (<150)
== END 2024-03-17 08:28 | disposition home or self-care (01) ==
LOC: HO.WFDLDS 08:27
PROVIDERS: Visit Provider Physician Assistant Medical
DX: E11.69 Type 2 diabetes mellitus with other specified complication (principal); E78.5 Hyperlipidemia, unspecified
CPT/HCPCS: 36415; 80048; 80061; 83036

== ENCOUNTER 2024-05-18 14:19 | Outpatient (AMB) | payer MEDICARE, SELFPAY ==
--- NOTE | 2024-05-18 14:24 | A.OFFPC_ITS ---
Vital Signs 05/18/24 14:26 Height 5 ft 7 in Weight 179 lb 6 oz BMI 28.1 BP 132/64 Blood Pressure Location Lt brachial Position Sitting Respiration 14 Pulse 95 Pulse Source Pulse Oximeter Pulse Oximetry (%) 97 Oxygen Delivery Method Room Air Intake Visit Reasons: 30 minute follow up complex Intake Note: Follow up Director Dermatology Required: No Allergies No Known Allergies Allergy (Verified 05/18/24 14:24) Tobacco use date assessed: 05/18/24 Fall risk assessment: No Falls in past year Last assessed Fall Risk: 05/18/24 Dental Screening Dental Screen Date: 11/18/23 HPI HPI Comments History of Present Illness Details This is an 83-year-old male with a past medical history of anemia, coronary artery disease, BPH, type 2 diabetes, hypertension, gastric ulcers, nodule of the right lung, osteoporosis and prostate cancer presenting for follow up. His daughter is with him today. He has not experienced dizziness since taking meclizine, and we have decreased the dose. He is on 12.5 mg twice per day with no recurrent episodes. She would like to know if they can decrease the dose further. He had a neuropsych evaluation which was consistent with mild cognitive impairment and mild depression. Recommendations were reviewed with his family at that time. He had a geriatric consult. Coronary artery disease-he is doing cardiac rehab twice per week. He denies chest pain, shortness of breath or dizziness. His statin was discontinued on the basis that it might have been contributing to prior dizziness, and he was on Repatha but they switched him back to atorvastatin since it was not causing the dizziness and the co-pay for Repatha was too expensive. Last LDL level was under 70. Patient had cardiac catheterizations 06/2022 with stents placed to RCA x2. Note indicates 2 additional stents were needed due to RCA dissection. He had an other cardiac catheterization due to chest pain in 12/18/2022. One of the stents had failed so he had stent #5 placed to RCA. Chest pain improved but did not resolve. Underwent another cardiac catheterization 07/19/2023. Chest pain escalated and so he had another catheterization on 10/20/2023 and they placed a stent to the LAD. Quit smoking 47 years ago. Quit drinking 45 years ago. When he was dealing with chest pain he saw his primary operator to see if it was related to GERD and they increased omeprazole from 20-40 mg, but it turned out that the chest pain was related to coronary artery disease. They would like to know if they can decrease the omeprazole back to 20 mg. His appetite has been good. He denies abdominal pain and reflux. The patient had shingles mid April. He went to urgent care. He was treated with antivirals. He also saw the eye doctor 3 times because there were lesions around the left eye. His eye was okay. Shingles was on the left side of the face and head. Pain has resolved. The skin is still a bit sensitive. His most recent hemoglobin A1c was 6.9%, but he had stopped Jardiance as a trial to see if this was related to dizziness which it was not. He has been taking it again consistently. He does not check blood sugars.. Recurrent UTIs, prostate cancer-diagnosed with prostate cancer in 2021. In remission. Followed by Dr. Scott. He had an appointment in May. ROS: Constitutional: No unexplained weight loss, fever, chills. Eyes: No vision changes Respiratory: No shortness of breath or cough. Cardiovascular: No chest pain or pedal edema. Gastrointestinal: No anorexia, nausea, vomiting or diarrhea. No abdominal pain Neurologic: No headache, syncope, unilateral weakness, ataxia Physical exam: Constitutional: Alert, in no distress. Eyes: Pupils are equal, round and reactive to light. Extraocular muscles intact. Ear, Nose and Throat: Canals clear. TMs normal. Normal nasal mucosa. No nasal discharge. No oral lesions. Neck: Supple, Full range of motion. No lymphadenopathy. Respiratory: Clear to auscultation. Cardiovascular: S1 S2 regular. No murmurs. Abdomen: Soft, nontender, no palpable masses, rebound or guarding. Extremities: Warm and well perfused. No clubbing, cyanosis or edema. Psychiatric: Normal mood and affect [facility] Medical History (Updated 05/18/24 @ 16:07 by GHAZAL Steinberg) Shingles Mild cognitive impairment Vertigo Pancytopenia Gastric ulcer Memory loss Bilateral hearing loss Bilateral tinnitus Lung nodule Anemia Prostate cancer Osteoporosis History of diverticulitis Wound dehiscence Dizziness Type 2 diabetes mellitus HLD (hyperlipidemia) CAD (coronary artery disease) Surgical History Hx of bladder repair surgery Knee joint replacement status History of coronary artery stent placement History of colostomy reversal Social History (Updated 01/10/24 @ 10:09 by Katelin Avila CMA) Household Members: None Housing: Apartment Alcohol intake: former Patient Tobacco Use Status: Former Tobacco user Cigarette Packs Per Day: 1 Years Smoked: 14 e-Cigarette/Vaping Use: Never Used Second Hand Smoke Exposure: No service: No Current occupational status: retired Current occupational exposures/hazards: No Gender identity: Male Cognitive needs: Yes (Memory issues) Hearing needs: Yes (Hearing loss ) Vision needs: Yes (glasses) Questionnaire Thrive Questionnaire Date Thrive assessed: 01/10/24 I am a: Patient What is your living situation today?: I have a steady place to live Within the past 12 months, did the food you bought not last and you didn't have the money to get more?: Never true Within the past 12 months, did you worry whether your food would run out before you got money to buy more?: Never true Do you have trouble paying for medicines?: No Do you have trouble getting transportation to medical appointments?: No Do you have trouble paying your heating and electricity bill?: No Do you have trouble taking care of your child, family member or friend?: No Do you have trouble with day-to-day activities such as bathing, preparing meals, shopping, managing finances, etc.?: No Are you currently unemployed and looking for a job?: No Are you interested in more education?: No Please select the resources that you would like help with: None Currently or been in a relationship where the following occur: No concerns reported THRIVE Score: 0 NINA-7 AMB Questionnaire NINA-7 Date NINA - 7 assessed: 11/18/23 Source: Developed by Drs. Ryan López, Emily Hernandez, Jordan Kunh and colleagues, with an educational katy from [employer]. Physical exam (Primary Care) Vital Signs: Last Vital Signs Pulse 95 05/18/24 14:26 Resp 14 05/18/24 14:26 BP 132/64 05/18/24 14:26 Pulse Ox 97 05/18/24 14:26 Oxygen Delivery Method Room Air 05/18/24 14:26 BMI result Body Mass Index 28.1 Tobacco/Smoking Status: Tobacco use Status Tobacco use date assessed 05/18/24 05/18/24 14:30 Patient Tobacco Use Status Former Tobacco user 05/18/24 14:30 e-Cigarette/Vaping Use Never Used 05/18/24 14:30 Thrive Assessment: Date of Thrive Assessment Date Thrive assessed 01/10/24 05/18/24 14:30 Currently or been in a relationship where the following occur: No concerns reported Coding Level of Care Code Est Pt Level 4 (56846) Complex EM visit Add On G2211 Diagnoses Vertigo R42 Type 2 diabetes mellitus with other specified complication, without long-term current use of insulin E11.69 Diabetes mellitus prison insulin use: without intermediate teacher use Diabetes mellitus complication status: with other specified complication Coronary artery disease involving [place] coronary artery of [place] heart without angina pectoris I25.10 Coronary Disease-Associated Artery/Lesion type: [place] artery [place] vs. transplanted heart: [place] heart Associated angina: without angina Shingles B02.9 Pure hypercholesterolemia E78.00 Hyperlipidemia type: pure hypercholesterolemia Prostate cancer C61 Assessment & Plan Assessment & Plan (1) Vertigo: Code(s): R42 - Dizziness and giddiness Category: Medical (2) Type 2 diabetes mellitus: Code(s): E11.9 - Type 2 diabetes mellitus without complications Category: Medical Qualifiers: Diabetes mellitus intermediate teacher insulin use: without intermediate teacher use Diabetes mellitus complication status: with other specified complication Qualified Code(s): E11.69 - Type 2 diabetes mellitus with other specified complication (3) CAD (coronary artery disease): Code(s): I25.10 - Atherosclerotic heart disease of [place] coronary artery without angina pectoris Category: Medical Qualifiers: Coronary Disease-Associated Artery/Lesion type: [place] artery [place] vs. transplanted heart: [place] heart Associated angina: without angina Qualified Code(s): I25.10 - Atherosclerotic heart disease of [place] coronary artery without angina pectoris (4) Shingles: Code(s): B02.9 - Zoster without complications Category: Medical (5) HLD (hyperlipidemia): Code(s): E78.5 - Hyperlipidemia, unspecified Category: Medical Qualifiers: Hyperlipidemia type: pure hypercholesterolemia Qualified Code(s): E78.00 - Pure hypercholesterolemia, unspecified (6) Prostate cancer: Code(s): C61 - Malignant neoplasm of prostate Category: Medical Plan We can decrease meclizine 12.5 mg once daily for 2-3 weeks. If he has no recurrent symptoms they can decrease to 12.5 mg every other day for a week and then try stopping it. They can restart if symptoms return. He can decrease omeprazole to 20 mg once daily. Discontinued Repatha for med list. Updated to reflect that he is now taking atorvastatin again. This is prescribed by Cardiology. His LDL is less than 70. Blood pressure is controlled. He will continue with cardiac rehab per Cardiology. Continue Jardiance 10 mg daily. The patient is on an Arb for renal protection and hypertension. Recommended getting the Shingrix vaccine when his symptoms fully resolve. They report he has only had Zostavax. Continue follow up for Urology. He will return for lab work in mid May. Follow up in 3 months. Orders: Orders Complete Blood Count Auto Diff 2 Weeks D61.818 - Other pancytopenia, D64.9 - Anemia, unspecified, E11.69 - Type 2 diabetes mellitus with other specified complication Hemoglobin A1c 2 Weeks D61.818 - Other pancytopenia, D64.9 - Anemia, unspecified, E11.69 - Type 2 diabetes mellitus with other specified complication, E11.9 - Type 2 diabetes mellitus without complications Comprehensive Met. Panel 2 Weeks D61.818 - Other pancytopenia, D64.9 - Anemia, unspecified, E11.69 - Type 2 diabetes mellitus with other specified complication Microalbumin, Random (w Creat) Today E11.9 - Type 2 diabetes mellitus without complications Medications: New omeprazole 20 mg PO DAILY 90 caps 3RF
[2024-05-18 14:26] VITALS: BP 132/64; PULSE 95; RESP 14; O2SAT 97; BMI 28.1
== END 2024-05-18 15:12 | disposition home or self-care (01) ==
LOC: HO.HMCFM 14:20
PROVIDERS: PCP Physician Assistant Medical; Visit Provider Physician Assistant Medical
DX: R42 Dizziness and giddiness (principal); E11.69 Type 2 diabetes mellitus with other specified complication; C61 Malignant neoplasm of prostate; I25.10 Atherosclerotic heart disease of native coronary artery without angina pectoris; B02.9 Zoster without complications; E78.00 Pure hypercholesterolemia, unspecified

== ENCOUNTER → 2024-05-18 14:19 | Outpatient (BNVA) | payer MEDICARE, SELFPAY | PROVIDERS: PCP Physician Assistant Medical; Visit Provider Physician Assistant Medical | DX: I25.10 Atherosclerotic heart disease of native coronary artery without angina pectoris (principal); N40.0 Benign prostatic hyperplasia without lower urinary tract symptoms; E11.69 Type 2 diabetes mellitus with other specified complication; I10 Essential (primary) hypertension; R91.1 Solitary pulmonary nodule; M81.0 Age-related osteoporosis without current pathological fracture; B02.9 Zoster without complications; E78.00 Pure hypercholesterolemia, unspecified; C61 Malignant neoplasm of prostate | CPT/HCPCS: 99212 ==

== ENCOUNTER 2024-06-16 13:53 | Outpatient (REF) | payer MEDICARE, SELFPAY ==
--- OUTSIDE RECORDS SUMMARY | 2024-06-16 14:15 | XMS_ITS | Clinical Summary ---
Author Organization [address] [facility] Address [address] [place] [address] Phone Care Team Providers Care Social Science Professor Name Role Phone Barbie Rico Primary Care Provider [phone] Allergies Active Allergy Reactions Criticality Noted Date Comments Codeine Nausea And Vomiting 03/18/2021 Morphine Nausea And Vomiting 03/18/2021 Penicillins 03/18/2021 Other Reaction(s): Rash/Dermatitis As a child, rash, tolerates cefazolin Medications empagliflozin (Jardiance) 10 mg tablet Take by mouth. 4 Active evolocumab (Repatha SureClick) 140 mg/mL pen injector injection Inject 1 mL into the skin every 14 days. 4 Active omeprazole (PriLOSEC) [address] capsule Take 20 mg by mouth 1 (one) time each day. Take 1 Capsule by mouth daily for 360 days. 4 08/14/19 25 Active clopidogreL (PLAVIX) 75 mg tablet Take 1 tablet (75 mg total) by mouth 1 (one) time each day. 4 Active evolocumab (Repatha Syringe) 140 mg/mL syringe Inject under the skin. Active metoprolol succinate (TOPROL-XL) 25 mg 24 hr tablet Take 1 Tablet by mouth daily for 360 days. 4 Active alendronate (FOSAMAX) 70 mg tablet Take 1 tablet (70 mg total) by mouth every 7 (seven) days. Active CHOLECALCIFEROL , VITAMIN D3, ORAL Take 1 tablet by mouth 1 (one) time each day. Active UNABLE TO FIND Take 2 tablets by mouth 1 (one) time each day. Misc Natural Products (CHOLESTEROL SUPPORT OR) Active BICALUTAMIDE ORAL Take 90 mg by mouth 1 (one) time each day. Active aspirin 81 mg EC tablet Take 1 tablet (81 mg total) by mouth 1 (one) time each day. 3 Active cyanocobalamin (VITAMIN B-12) 100 mcg tablet 10 tablets (1,000 mcg total) 1 (one) time each day. 2 Active ferrous sulfate 325 mg (65 mg elemental iron) tablet Take 1 tablet (325 mg total) by mouth 2 (two) times a day. 2 Active ranolazine (RANEXA) 500 mg 12 hr tablet Take 1 tablet (500 mg total) by mouth 2 (two) times a day. Take 1 Tablet by mouth 2 times daily for 360 days 180 each 1 4 01/13/20 25 Active telmisartan (MICARDIS) 80 mg tabletIndicatio ns:Coronary artery disease involving [place] coronary artery of [place] heart without angina pectoris Take 1 tablet (80 mg total) by mouth 1 (one) time each day. Active nitroglycerin (NITROSTAT) 0.4 mg SL tablet DISSOLVE ONE TABLET UNDER THE TONGUE EVERY 5 MINUTES NEEDED FOR CHEST PAIN. DO NOT EXCEED A TOTAL OF 3 DOSES IN 15 MINUTES 100 tablet 1 5 Active rosuvastatin (CRESTOR) 20 mg tablet Take 1 tablet (20 mg total) by mouth 1 (one) time each day. 90 tablet 1 5 Active rosuvastatin (CRESTOR) 20 mg tablet Take 1 tablet (20 mg total) by mouth 1 (one) time each day. 05/31/19 25 Discontinu ed(Reorder ) Active Problems Problem Noted Date Diagnosed Date Pure hypercholesterolemia 05/24/2024 Assessment & Plan (05/25/2024 4:13 PM EDT): He has demonstrated a positive response to Repatha in terms of cholesterol management; however, the financial burden associated with this medication is significant. It appears that his dizziness was not a side effect of the statin, as it did not subside upon discontinuation of the medication. His LDL cholesterol level is currently below 25 on a 20 mg dose of rosuvastatin, which may negate the necessity for an increased dosage. A prescription for rosuvastatin 20 mg will be provided. He is advised to continue with his current regimen of ranolazine. A lipid profile will be conducted during his upcoming lab work in the second week of May 2024. Word finding difficulty 01/04/2023 Overview (01/25/2024): December 2022 - brain MRI negative for acute pathology Assessment & Plan (05/25/2024 4:13 PM EDT): Resolved Dizziness 12/24/2022 Symptomatic bradycardia 12/24/2022 Overview (01/25/2024): Admitted to [facility] with symptomatic bradycardia - likely related to Metoprolol and possibly RCA disease. March 2023 - holter showed normal sinus rhythm, rare PACs, one PVC and no significant pauses, longest R-R was 1.6 seconds at 7:47pm Assessment & Plan (05/25/2024 4:13 PM EDT): Resolved. Likely due to metoprolol effect Assessment & Plan (01/25/2024 2:27 PM EST): Resolved. Holter reassuring. Continue with Metoprolol at current dose. Axillary lymphadenopathy 11/23/2022 Coronary artery disease 08/20/2022 Overview (01/25/2024): June 2022 - due to exertional shortenss of breath and chest pressure as well as an abnormal stress testing, the patient went for a diagnostic angiogram which showed significant RCA disease of the proximal and distal RCA. Upon attempting intervention to the distal RCA there was dissection to the mid to distal RCA. He ultimately received one MIYA to the distal RCA, one MIYA to the mid RCA and two MIYA to the proximal RCA as well a POBA to the RPL1. November 2022 - repeat angiogram due to exertional symptoms with discovery of ISR of the RCA status post atherectomy with another MIYA placed. His procedure was complicated by junctional bradycardia, hypotension and chest pain requiring TVP. A second angiogram was completed and showed patent mid RCA stent, but with occluded marginal branch. April 2023 - coronary CTA completed due to recurrent angina and showed patent proximal RCA stent with blooming effect of mid an distal RCA stents without accurate assessment, mild stenosis of LM, mild stenosis of proximal LAD with blooming effect of mid to distal LAD and mild stenosis September 2023 - ongoing angina with repeat angiogram with successful PCI of the 1st diagonal with one MIYA and a balloon angioplasty of a side branch of the D1 Assessment & Plan (05/25/2024 4:13 PM EDT): Mr. Frost has done remarkably well following extensive percutaneous revascularization of the right coronary artery and subsequent PCI of a complex bifurcation lesion of a relatively small caliber diagonal artery branch. A drug-eluting stent was placed in the main diagonal branch with PTCA of the smaller sidebranch. He developed recurrent angina several weeks later, most likely due to restenosis of the small diagonal sidebranch but this symptom has not recurred following the addition of ranolazine to his regimen. He is delighted with his progress. He will continue on his present medical regimen including ranolazine. Lipid management will be continued with rosuvastatin 20 mg a day. If a follow-up LDL exceeds 50 mg/dL I would recommend that the rosuvastatin dose be increased to 40 mg a day. The patient will return here in approximately 6 months. He and his daughter know to contact us in the interim if we can help in any way. Assessment & Plan (01/25/2024 2:27 PM EST): Since symptomatic, obstructive coronary artery disease history since April 2022. Echocardiogram from November 2022 showed preserved LV systolic function. Now on ranolazine and metoprolol as well as prn nitroglycerin he has no further significant anginal symptoms with improved effort capacity. He is looking forward to starting cardiac rehab. Continue with aspirin, clopidogrel, empagliflozin, evolocumab, metoprolol, telmisartan and ranolazine. We discussed risk reduction through lifestyle choices including healthy diet, routine exercise and weight management. Orders: ECG 12 lead Acute gastric ulcer with hemorrhage 06/30/2021 Dyspnea on exertion 06/30/2021 Primary hypertension 03/18/2021 Assessment & Plan (05/25/2024 4:13 PM EDT): Well controlled on present Rx Assessment & Plan (01/25/2024 2:27 PM EST): Controlled. Continue with metoprolol, telmisartan. We discussed risk reduction through lifestyle choices including healthy diet, routine exercise and weight management. Resolved Problems Problem Noted Date Diagnosed Date Resolved Date Coronary stent patent 11/23/20222023 Angina pectoris (CMS/HCC V24) 03/18/2021 01/25/2024 Encounters Date Type Department Care Team Description 05/30/2024 Telephone [facility] Cardiology [address] [place] [address] Artemio Green MD Med Refill (Rosuvastatin) 05/25/2024 3:30 PM EDT Office Visit [address] [place] [address] Artemio Green MD Coronary artery disease involving [place] coronary artery of [place] heart with angina pectoris (CMS/HCC V24) (Primary Dx); Primary hypertension; Symptomatic bradycardia; Word finding difficulty; Pure hypercholesterolemia 03/21/2024 Telephone [place] [address] [place] [address] Palomo Ochoa NP Med Change Request from Last 3 Months Surgical History Surgery Date Site/Laterality Comments BACK SURGERY PROCEDURE: HISTORICAL BACK SURGERY OTHER SURGICAL HISTORY PROCEDURE: [place] COLECTOMY PARTIAL W/ANASTOMOSIS OTHER SURGICAL HISTORY PROCEDURE: HISTORY OTHER; COMMENT: knee replacement OTHER SURGICAL HISTORY PROCEDURE: HISTORY OTHER; COMMENT: bladder repair Medical History Medical History Date Comments DDD (degenerative disc disease), lumbar DX:DDD (degenerative disc disease), lumbar Diabetes (CMS/HCC V24, CMS/HCC V28) DX:Diabetes (HCC) Dyspnea, unspecified DX:Dyspnea, unspecified Osteoarthritis DX:Osteoarthriti s Prostate cancer (CMS/HCC V24, CMS/HCC V28) DX:Prostate cancer (HCC) Chronic lumbar radiculopathy DX: Chronic lumbar radiculopathy; COMMENT: Historical Gastritis DX:Gastritis BPH (benign prostatic hyperplasia) DX:BPH (benign prostatic hyperplasia) Anemia DX:Anemia Covid DX:COVID Iron deficiency anemia DX:Iron d eficiency anemia Multiple gastric ulcers DX:Multi ple gastric ulcers HTN (hypertension) DX:HTN (hyper tension) Family History Medical History Relation Name Comments Colon cancer Father Other: Overdose Mother Other: Overdose Sister Relation Name Status Comments Father Mother Sister Social History Tobacco Use Types Packs/Day Years Used Date Smoking Tobacco: Former Cigarettes Q uit: 03/01/1977 Smokeless Tobacco: Never Alcohol Use Standard Drinks/Week Comments Not Currently 0 (1 standard drink = 0.6 oz pur e alcohol) Sex and Gender Information Value Date Recorded Sex Assigned at Not on file Legal Sex Male 10:30 AM EST Gender Identity Not on file Sexual Orientation Not on file Obstetrics History Last Filed Vital Signs Vital Sign Reading Time Taken Comments Blood Pressure 136/66 05/25/2024 3:27 PM EDT Pulse 109 05/25/2024 3:27 PM EDT Temperature - - Respiratory Rate - - Oxygen Saturation 98% 05/25/2024 3:27 PM EDT Inhaled Oxygen Concentration - - Weight 80.6 kg (177 lb 12.8 oz) 05/25/2024 3:27 PM EDT Height 170.2 cm (5' 7 ) 05/25/2024 3:27 PM EDT Body Mass Index 27.85 05/25/2024 3:27 PM EDT Plan of Treatment Upcoming Encounters Date Type Department Care Team (Late st Contact Info) Description 12/13/2024 1:40 PM EDT Office Visit [facility] [address] [place] [address] Palomo Ochoa NP [address] [place] [address] [address] [place] [address] Health Maintenance Due Date Last Done Comments Diabetes: Annual GFR (Glomerular Filtration Rate) 1941 Diabetes: Annual Foot Exam 1951 Diabetes: Annual Retina Eye Exam 1950 DTaP,Tdap,and Td Vaccines (1 - Tdap) 02/12/1960 Zoster Vaccines (1 of 2) 02/12/1960 RSV Immunization Adult Patients (1 - 1-dose 75+ series) 02/12/2016 Cholesterol Screening (Lipid Panel) 01/27/2022 Depression Screening 01/27/2022 Falls Risk Assessment 01/27/2022 Medicare Annual Wellness Visit 01/27/2022 Social Influencers of Health Screening 01/27/2022 Hypertension/CHF/CAD Annual BMP Blood Test 02/08/2022 COVID-19 Vaccine (4 - 2023-2 5 season) 2023 07/23/2021, 07/24/2020, 06/26/2020 Diabetes: Annual Urine Albumin-Creatinine Ratio (uACR) 01/07/2024 Diabetes: Blood Sugar Contro l Test (HGBA1C) 01/07/2024 Influenza Vaccine (Season Ended) 2024 04/17/2021 Pneumococcal Vaccine: 50+ Years Completed 01/07/2023 HIB Vaccines Aged Out No longer eligi ble based on patient's age to complete this topic HPV Vaccines Aged Out No longer eligi ble based on patient's age to complete this topic Hepatitis A Vaccines Aged Out No long er eligible based on patient's age to complete this topic Hepatitis B Vaccines Aged Out No long er eligible based on patient's age to complete this topic IPV Vaccines Aged Out No longer eligi ble based on patient's age to complete this topic MMR Vaccines Aged Out No longer eligi ble based on patient's age to complete this topic Meningococcal ACWY Vaccine Aged Out N o longer eligible based on patient's age to complete this topic Meningococcal B Vaccine Aged Out No l onger eligible based on patient's age to complete this topic RSV Immunization Patients Under 20 months Aged Out No longer eligible b ased on patient's age to complete this topic Varicella Vaccines Aged Out No longer eligible based on patient's age to complete this topic Insurance [employer] Care Teams Social Science Professor Relationship Specialty Start Date End Date Barbie Rico PA [address] [place] [address] PCP - General 12/23/23
--- OUTSIDE RECORDS SUMMARY | 2024-06-16 14:15 | XMS_ITS | Encounter Summary ---
Author Organization [facility] Address [address] [place] [address] Care Team Providers Care Custom Miller Name Role Phone Barbie Rico Primary Care Provider [phone] Reason for Visit * Reason Onset Date Comments Med Refill 05/30/2024 Rosuvastatin Encounter Details Date Type Department Care Team (Late st Contact Info) Description 05/30/2024 Telephone [facility] Cardiology [facility] [address] [place] [address] Artemio Green MD [address] [place] [address] [address] [address] Med Refill (Rosuvastatin) Social History Tobacco Use Types Packs/Day Years [...] on file Sexual Orientation Not on file documented as of this encounter Ordered Prescriptions Prescription Sig Dispense Quantity Refills Last Filled Start Date End Date rosuvastatin (CRESTOR) 20 mg tablet Take 1 tablet (20 mg total) by mouth 1 (one) time each day. 90 tablet 1 05/30/2024 documented in this encounter Progress Notes * Myrna López RN - 05/30/2024 10:59 AM EDT SERGEI 05/25/24, no pending visit at this time Crestor refills sent * Abdoulaye Elizabeth - 05/30/2024 10:54 AM EDT Refill request for Rosuvastatin 20 mg once a day for a 60 day supply. Please send the [facility] [address] [facility], [place] [address]. documented in this encounter Plan of Treatment Upcoming Encounters Date Type Department Care Team (Late st Contact Info) Description 12/13/2024 1:40 PM EDT Office Visit [facility] [address] [place] [address] Gabriela, REMI Culver [address] [place] [address] [address] [place] [address] documented as of this encounter Visit Diagnoses Not on filedocumented in this encounter Discontinued Medications Medication Sig Discontinue Reason Start Date End Da te rosuvastatin (CRESTOR) 20 mg tablet Take 1 tablet (20 mg total) by mouth 1 (one) time each day. Reorder 05/30/2024 documented as of this encounter Care Teams Custom Miller Relationship Specialty Start Date End Date Barbie Rico PA [address] [place] [address] PCP - General 12/23/23 documented as of this encounter
[2024-06-16 17:28] LABS: MANUAL DIFF FLAG NO
[2024-06-16 17:36] LABS: Basophils Percent Auto 0.6 % (0-2); Eosinophils Absolute Auto 0.1 X10*3/uL (0.0-0.4); Eosinophils Percent Auto 2.8 % (0-4); Hematocrit 33.9 % (42.0-52.0); Hemoglobin 11.9 g/dl (14.0-18.0); Imm Gran Abs Auto 0.04 X10*3/uL (0.00-0.03); Imm Gran Pct Auto 0.9 % (0.0-0.4); Lymphocytes Absolute Auto 0.7 X10*3/uL (1.2-4.9); Lymphocytes Percent Auto 14.2 % (20-40); Mean Corpuscular HGB Conc 35.1 g/dl (31.0-36.0); Mean Corpuscular Volume 85.4 fL (80.0-98.0); Mean Platelet Volume 10.5 fL (9.4-12.4); Monocytes Absolute Auto 0.4 X10*3/uL (0.1-1.2); Monocytes Percent Auto 8.4 % (2-11); Neutrophils Absolute Auto 3.4 x10*3/uL (2.0-8.3); Neutrophils Percent Auto 73.1 % (45-73); Platelet Count 150 X10*3/uL (160-400); Red Blood Count 3.97 X10*6/uL (4.60-5.80); Red Cell Distribution Width 13.6 % (11.0-16.0); White Blood Count 4.7 X10*3/uL (4.8-10.8)
[2024-06-16 17:44] LABS: Basophils Percent Auto 0.6 % (0-2); Eosinophils Absolute Auto 0.1 X10*3/uL (0.0-0.4); Eosinophils Percent Auto 2.8 % (0-4); Hematocrit 33.9 % (42.0-52.0); Hemoglobin 11.9 g/dl (14.0-18.0); Imm Gran Abs Auto 0.04 X10*3/uL (0.00-0.03); Imm Gran Pct Auto 0.9 % (0.0-0.4); Lymphocytes Absolute Auto 0.7 X10*3/uL (1.2-4.9); Lymphocytes Percent Auto 14.2 % (20-40); Mean Corpuscular HGB Conc 35.1 g/dl (31.0-36.0); Mean Corpuscular Volume 85.4 fL (80.0-98.0); Mean Platelet Volume 10.5 fL (9.4-12.4); Monocytes Absolute Auto 0.4 X10*3/uL (0.1-1.2); Monocytes Percent Auto 8.4 % (2-11); Neutrophils Absolute Auto 3.4 x10*3/uL (2.0-8.3); Neutrophils Percent Auto 73.1 % (45-73); Platelet Count 150 X10*3/uL (160-400); Red Blood Count 3.97 X10*6/uL (4.60-5.80); Red Cell Distribution Width 13.6 % (11.0-16.0); White Blood Count 4.7 X10*3/uL (4.8-10.8)
[2024-06-16 17:58] LABS: Alanine Aminotransferase 22 U/L (0-40); Albumin Level 4.3 g/dL (3.5-5.0); Anion Gap 12 (12-20); Aspartate Amino Transferase 20 U/L (5-37); Bilirubin Total 0.6 mg/dL (0.0-1.0); Blood Urea Nitrogen 25 mg/dL (9-16); Carbon Dioxide 22 mmol/L (22-29); Chloride 108 mmol/L (96-108); Estimated Average Glucose 131 mg/dL; Estimated Glomerular Filt Rate > 60; Glucose Random 112 mg/dL (60-115); Hemoglobin A1C 138.6052 umol/L; Hemoglobin A1c % 6.2 % (<6.0); Potassium 4.1 mmol/L (3.3-5.1); Sodium 138 mmol/L (135-145); Total Hemoglobin (HGBA1C) 3116.7731 umol/L; Total Protein 6.7 g/dL (6.5-8.0)
[2024-06-16 18:21] LABS: Prostate Specific Antigen 0.34 ng/mL (<0.05-4.0)
[2024-06-16 19:08] LABS: Alkaline Phosphatase 71 U/L (39-117)
== END 2024-06-16 13:54 | disposition home or self-care (01) ==
LOC: HO.WFDLDS 13:53
PROVIDERS: Referring Provider Urology; Visit Provider Physician Assistant Medical
DX: C61 Malignant neoplasm of prostate (principal); E11.69 Type 2 diabetes mellitus with other specified complication; D64.9 Anemia, unspecified; D61.818 Other pancytopenia; Z12.5 Encounter for screening for malignant neoplasm of prostate
CPT/HCPCS: 36415; 80053; 83036; 84153; 85025

== ENCOUNTER 2024-08-31 15:22 | Outpatient (AMB) | payer MEDICARE, SELFPAY ==
--- NOTE | 2024-08-31 15:25 | A.OFFPC_ITS ---
Vital Signs 08/31/24 15:31 08/31/24 15:44 Height 5 ft 7 in Weight 170 lb BMI 26.6 BP 124/72 Blood Pressure Location Rt brachial Position Sitting Pulse 105 H 100 Pulse Source Pulse Oximeter Temp 98.6 F Temp Source Temporal Artery Scan Pulse Oximetry (%) 96 Oxygen Delivery Method Room Air Intake Visit Reasons: follow-up reschedule from 08/21 Intake Note: Artemio presents in the office today for a follow up. Patient recently had shingles on his face. It has affected the left side of his face. Allergies No Known Allergies Allergy (Verified 08/31/24 15:28) Medication List - Last Reconciled 08/31/24 by GHAZAL Steinberg alendronate 70 mg PO QWEEK aspirin (Adult Aspirin Regimen) 81 mg PO DAILY bicalutamide 50 mg PO DAILY cholecalciferol (vitamin D3) 10 mcg PO DAILY clopidogrel 75 mg PO DAILY cyanocobalamin (vitamin B-12) 1,000 mcg PO DAILY empagliflozin (Jardiance) 10 mg PO DAILY ferrous sulfate ER 142 mg PO DAILY isosorbide mononitrate ER 30 mg PO DAILY meclizine 12.5 mg PO BID methenamine hippurate 1 g PO DAILY metoprolol succinate ER 25 mg PO DAILY omeprazole 20 mg PO DAILY ranolazine ER 500 mg PO BID rosuvastatin 20 mg PO DAILY vitamin K2 100 mcg PO DAILY Tobacco use date assessed: 08/31/24 Fall risk assessment: No Falls in past year Last assessed Fall Risk: 08/31/24 Dental Screening Dental Screen Date: 08/31/24 Did you have a dental visit in the last 12 months?: No Did you have a dental problem in the last 6 months where you did not have access to dental care?: No Was dental information given to patient?: Patient declined HPI HPI Comments History of Present Illness Details This is an 84-year-old male with a past medical history of anemia, coronary artery disease, BPH, type 2 diabetes, hypertension, gastric ulcers, nodule of the right lung, osteoporosis and prostate cancer presenting for hospital follow up. He was admitted 07/21/24 to 07/25/24 for worsening chest pain over a week. ACS work up was negative. Medications were changed due to hypotension and sinus pause. Echo showed LVEF 55-60%, no wall motion abnormalities, mild dilation of aortic r oot (4.2cm) but normal when indexed for BSA. Cardiac cath showed no critical lesion. LDL 14. Course complicated by delirium which resolved. Metoprolol decreased to 25 mg daily and started on Isosorbide mononitrate 30 mg daily. Telmisartan d/c due to hypotension. Denies CP or SOB since hospitalization. Patient did cardiac rehab. Coronary artery disease- Patient had cardiac catheterizations 06/2022 with stents placed to RCA x2. Note indicates 2 additional stents were needed due to RCA dissection. He had an other cardiac catheterization due to chest pain in 12/18/2022. One of the stents had failed so he had stent #5 placed to RCA. Chest pain improved but did not resolve. Underwent another cardiac catheterization 07/19/2023. Chest pain escalated and so he had another catheterization on 10/20/2023 and they placed a stent to the LAD. Quit smoking 47 years ago. Quit drinking 45 years ago. Medications reconciled. He was on Repatha, but the copay was too high. Now takes Crestor. He had a neuropsych evaluation which was consistent with mild cognitive impairment and mild depression. Recommendations were reviewed with his family at that time. He had a geriatric consult. Type II diabetes-Taking Jardiance. Does not monitor glucose. Last A1C 6.2%. Recurrent UTIs, prostate cancer-diagnosed with prostate cancer in 2021. In remission. Followed by Dr. Scott. ROS: Constitutional: No unexplained weight loss, fever, chills or fatigue. Eyes: No vision changes Respiratory: No shortness of breath or cough. Cardiovascular: No chest pain or pedal edema. Gastrointestinal: No anorexia, nausea, vomiting or diarrhea. No abdominal pain Neurologic: No headache, syncope, unilateral weakness, ataxia Physical exam: Constitutional: Alert, in no distress. Neck: Supple, Full range of motion. No lymphadenopathy. Respiratory: Clear to auscultation. Cardiovascular: S1 S2 regular. No murmurs. Abdomen: Soft, nontender, no palpable masses, rebound or guarding. Extremities: Warm and well perfused. No clubbing, cyanosis or edema. Psychiatric: Normal mood and affect [facility] Medical History (Updated 08/31/24 @ 21:54 by GHAZAL Steinberg) Chest pain Hospital discharge follow-up Shingles Mild cognitive impairment Vertigo Pancytopenia Gastric ulcer Memory loss Bilateral hearing loss Bilateral tinnitus Lung nodule Anemia Prostate cancer Osteoporosis History of diverticulitis Wound dehiscence Dizziness Type 2 diabetes mellitus HLD (hyperlipidemia) CAD (coronary artery disease) Surgical History Hx of bladder repair surgery Knee joint replacement status History of coronary artery stent placement History of colostomy reversal Social History (Updated 08/31/24 @ 15:30 by Erin Machuca MA) Household Members: None Housing: Apartment Alcohol intake: former Patient Tobacco Use Status: Former Tobacco user Cigarette Packs Per Day: 1 Years Smoked: 14 e-Cigarette/Vaping Use: Never Used Second Hand Smoke Exposure: No service: No Current occupational status: retired Current occupational exposures/hazards: No Gender identity: Male Cognitive needs: Yes (Memory issues) Hearing needs: Yes (Hearing loss ) Vision needs: Yes (glasses) Questionnaire PHQ-9 Over the last 2 weeks, how often have you been bothered by any of the following problems? 1. Little interest or pleasure in doing things: not at all 2. Feeling down, depressed, or hopeless: not at all 3. Trouble falling or staying asleep, or sleeping too much: not at all 4. Feeling tired or having little energy: not at all 5. Poor appetite or overeating: not at all 6. Feeling bad about yourself - or that you are a failure or have let yourself or your family down: not at all 7. Trouble concentrating on things, such as reading the newspaper or watching television: not at all 8. Moving or speaking so slowly that other people could have noticed. Or the opposite - being so fidgety or restless that you have been moving around a lot more than usual: not at all 9. Thoughts that you would be better off or of hurting yourself in some way: not at all Total score: 0 Depression Screening Interpretation: Negative Depression Screening Done: Yes 60545 - PHQ-9 Billing: Yes Source: Developed by Drs. Ryan López, Emily Hernandez, Jordan Kuhn and colleagues, with an educational katy from [employer]. Thrive Questionnaire Date Thrive assessed: 01/10/24 I am a: Patient What is your living situation today?: I have a steady place to live Within the past 12 months, did the food you bought not last and you didn't have the money to get more?: I choose not to answer this question Within the past 12 months, did you worry whether your food would run out before you got money to buy more?: I choose not to answer this question Do you have trouble paying for medicines?: I choose not to answer this question Do you have trouble getting transportation to medical appointments?: I choose not to answer this question Do you have trouble paying your heating and electricity bill?: I choose not to answer this question Do you have trouble taking care of your child, family member or friend?: I choose not to answer this question Do you have trouble with day-to-day activities such as bathing, preparing meals, shopping, managing finances, etc.?: I choose not to answer this question Are you currently unemployed and looking for a job?: I choose not to answer this question Are you interested in more education?: I choose not to answer this question Please select the resources that you would like help with: None Currently or been in a relationship where the following occur: I choose not to answer THRIVE Score: 0 AUDIT C Alcohol Use Questionnaire (AUDIT-C) 1. How often do you have a drink containing alcohol?: Never 3. How often do you have six or more drinks on one occasion?: Never Total Score: 0 NINA-7 AMB Questionnaire NINA-7 Date NINA - 7 assessed: 08/31/24 Feeling nervous, anxious, or on edge: 0 = Not at all Not being able to stop or control worryin = Not at all Worrying too much about different things: 0 = Not at all Trouble relaxin = Not at all Being so restless that it is hard to sit still: 0 = Not at all Becoming easily annoyed or irritable: 0 = Not at all Feeling afraid as if something awful might happen: 0 = Not at all Total NINA-7 score (0-4 normal; 5-9 mild; 10-14 moderate; 15-21 severe): 0 Source: Developed by Drs. Ryan López, Emily Hernandez, Jodran Kuhn and colleagues, with an educational katy from [employer]. NINA-7 Assessment Billing NINA-7 Assessment Tool: NINA-7 Assessment 19430 Physical exam (Primary Care) Vital Signs: Last Vital Signs Temp 98.6 F 08/31/24 15:31 Pulse 100 08/31/24 15:44 BP 124/72 08/31/24 15:31 Pulse Ox 96 08/31/24 15:31 Oxygen Delivery Method Room Air 08/31/24 15:31 BMI result Body Mass Index 26.6 Tobacco/Smoking Status: Tobacco use Status Tobacco use date assessed 08/31/24 08/31/24 15:34 Patient Tobacco Use Status Former Tobacco user 08/31/24 15:30 e-Cigarette/Vaping Use Never Used 08/31/24 15:30 PHQ-9: PHQ-9 Score PHQ-9: Total score 0 08/31/24 15:37 Depression Screening Interpretation: Negative Thrive Assessment: Date of Thrive Assessment Date Thrive assessed 01/10/24 08/31/24 15:25 Currently or been in a relationship where the following occur: I choose not to answer Coding Level of Care Code Est Pt Level 5 (84102) Complex EM visit Add On G2211 Diagnoses Hospital discharge follow-up Z09 Stable angina pectoris I20.89 Chest pain type: chest pain due to myocardial ischemia Ischemic chest pain type: stable angina pectoris Type 2 diabetes mellitus with other specified complication, without long-term current use of insulin E11.69 Diabetes mellitus termite treater insulin use: without senior living use Diabetes mellitus complication status: with other specified complication Coronary artery disease involving [place] coronary artery of [place] heart without angina pectoris I25.10 Coronary Disease-Associated Artery/Lesion type: [place] artery [place] vs. transplanted heart: [place] heart Associated angina: without angina Pure hypercholesterolemia E78.00 Hyperlipidemia type: pure hypercholesterolemia Prostate cancer C61 Mild cognitive impairment G31.84 Additional Codes NINA-7 Assessment Billing - NINA-7 Assessment Tool: NINA-7 Assessment 24860 ([id number]) PHQ-9 - 91698 - PHQ-9 Billing: Yes ([id number]) Time Spent (min) 50 Comment review records, direct care, documentation Assessment & Plan Assessment & Plan (1) Hospital discharge follow-up: Code(s): Z09 - Encounter for follow-up examination after completed treatment for conditions other than malignant neoplasm Category: Medical (2) Chest pain: Code(s): R07.9 - Chest pain, unspecified Category: Medical Qualifiers: Chest pain type: chest pain due to myocardial ischemia Ischemic chest pain type: stable angina pectoris Qualified Code(s): I20.89 - Other forms of angina pectoris (3) Type 2 diabetes mellitus: Code(s): E11.9 - Type 2 diabetes mellitus without complications Category: Medical Qualifiers: Diabetes mellitus senior living insulin use: without senior living use Diabetes mellitus complication status: with other specified complication Qualified Code(s): E11.69 - Type 2 diabetes mellitus with other specified complication (4) CAD (coronary artery disease): Code(s): I25.10 - Atherosclerotic heart disease of [place] coronary artery without angina pectoris Category: Medical Qualifiers: Coronary Disease-Associated Artery/Lesion type: [place] artery [place] vs. transplanted heart: [place] heart Associated angina: without angina Quali fied Code(s): I25.10 - Atherosclerotic heart disease of [place] coronary artery without angina pectoris (5) HLD (hyperlipidemia): Code(s): E78.5 - Hyperlipidemia, unspecified Category: Medical Qualifiers: Hyperlipidemia type: pure hypercholesterolemia Qualified Code(s): E78.00 - Pure hypercholesterolemia, unspecified (6) Prostate cancer: Code(s): C61 - Malignant neoplasm of prostate Category: Medical (7) Mild cognitive impairment: Code(s): G31.84 - Mild cognitive impairment of uncertain or unknown etiology Category: Medical Plan 84 year old male with known CVD stable since hospital discharge for worsening chest pain. Course complicated by delirium (3 days in hospital). Resolved. Tolerating medication changes. HR upper limit of normal on reduced dose of BB. HTN controlled. LDL at target <70. Followed by cardiolgy and doing cardiac rehab. Continue Jardiance 10 mg daily. ARN discontinued due to hypotension. Continue follow up with urology. Follow up in 6 weeks.
--- OUTSIDE RECORDS SUMMARY | 2024-08-31 15:25 | XMS_ITS | Clinical Summary ---
Author Organization [facility] Address [address] [place] [address] Phone Care Team Providers Care Billing Manager Name Role Phone Barbie Rico Primary Care Provider [phone] Allergies Active Allergy Reactions Criticality Noted Date Comments Codeine Nausea And Vomiting 03/18/2021 Morphine Nausea And Vomiting 03/18/2021 Penicillins 03/18/2021 Other Reaction(s): Rash/Dermatitis As a child, rash, tolerates cefazolin Medications empagliflozin (Jardiance) 10 mg tablet Take by mouth. 4 Active evolocumab (Repatha SureClick) 140 mg/mL pen injector injection Inject 1 mL into the skin every 14 days. 4 Active clopidogreL (PLAVIX) 75 mg tablet Take 1 tablet (75 mg total) by mouth 1 (one) time each day. 4 Active evolocumab (Repatha Syringe) 140 mg/mL syringe Inject under the skin. Active alendronate (FOSAMAX) 70 mg tablet Take [...] 80 mg tabletIndicatio ns:Coronary artery disease involving [place] coronary artery of [place] heart without angina pectoris Take 1 tablet [...] each day. 90 tablet 1 5 Active metoprolol succinate (TOPROL-XL) 25 mg 24 hr tablet Take 1 tablet (25 mg total) by mouth 1 (one) time each day. 90 tablet 5 Active isosorbide mononitrate (IMDUR) 30 mg 24 hr tablet Take 1 tablet (30 mg total) by mouth 1 (one) time each day. Do not crush or chew. 90 tablet 5 Active omeprazole (PriLOSEC) [address] capsule Take 20 mg by mouth 1 (one) time each day. Take 1 Capsule by mouth daily for 360 days. 4 08/14/19 25 metoprolol succinate (TOPROL-XL) 25 mg 24 hr tablet Take 1 Tablet by mouth daily for 360 days. 4 08/18/19 25 Discontinue d(Reorder) Active Problems Problem Noted Date Diagnosed Date [...] Symptomatic bradycardia 12/24/2022 Overview (01/25/2024): Admitted to [facility] with symptomatic bradycardia - likely related to [...] Date Coronary stent patent 11/23/20222023 Angina pectoris ([facility] V24) 03/18/2021 01/25/2024 Encounters Date Type Department Care Team Description 08/17/2024 Telephone [facility] Cardiology [address] [place] [address] Corey Green MD Med Refill 07/25/2024 Telephone [facility] [address] [place] [address] [place] [address] Palomo Ochoa NP 07/21/[address] [place] [address] Corey Green MD Chest Pain from Last 3 Months Surgical History Surgery Date Site/Laterality Comments BACK SURGERY PROCEDURE: HISTORICAL BACK SURGERY OTHER SURGICAL HISTORY PROCEDURE: AR COLECTOMY PARTIAL W/ANASTOMOSIS OTHER SURGICAL HISTORY PROCEDURE: [...] Care Team (Late st Contact Info) Description 09/11/2024 2:10 PM EDT Office Visit [facility] Cardiology [facility] [address] [place] [address] Palomo Ochoa NP [address] [place] [address] [address] [place] [address] 12/13/2024 1:40 PM EDT Office Visit [facility] Cardiology [facility] [address] [facility] [address] [place] [address] Palomo Ochoa NP [address] [place] [address] [place] [address] Health Maintenance Due Date Last Done Comments [...] Annual BMP Blood Test 02/08/2022 COVID-19 Vaccine (2023-2 5 season) 2023 07/23/2021, 07/24/2020, 06/26/2020 Diabetes: [...] [employer] [place] [employer] Care Teams Billing Manager Relationship Specialty Start Date End Date Barbie Rico PA [address] [place] [id number] PCP - General 12/23/23
[2024-08-31 15:31] VITALS: BP 124/72; PULSE 105; TEMP 37; O2SAT 96; BMI 26.6
[2024-08-31 15:44] VITALS: PULSE 100
== END 2024-08-31 15:55 | disposition home or self-care (01) ==
LOC: HO.HMCFM 15:23
PROVIDERS: PCP Physician Assistant Medical; Visit Provider Physician Assistant Medical
DX: E11.69 Type 2 diabetes mellitus with other specified complication (principal); C61 Malignant neoplasm of prostate; Z09 Encounter for follow-up examination after completed treatment for conditions other than malignant neoplasm; I25.10 Atherosclerotic heart disease of native coronary artery without angina pectoris; E78.00 Pure hypercholesterolemia, unspecified; G31.84 Mild cognitive impairment of uncertain or unknown etiology

== ENCOUNTER → 2024-08-31 15:22 | Outpatient (BNVA) | payer MEDICARE, SELFPAY | PROVIDERS: PCP Physician Assistant Medical; Visit Provider Physician Assistant Medical | DX: Z09 Encounter for follow-up examination after completed treatment for conditions other than malignant neoplasm (principal); I25.118 Atherosclerotic heart disease of native coronary artery with other forms of angina pectoris; E11.69 Type 2 diabetes mellitus with other specified complication; E78.00 Pure hypercholesterolemia, unspecified; C61 Malignant neoplasm of prostate; G31.84 Mild cognitive impairment of uncertain or unknown etiology; Z13.31 Encounter for screening for depression; Z13.30 Encounter for screening examination for mental health and behavioral disorders, unspecified | CPT/HCPCS: 96127; 99212 ==

== ENCOUNTER 2024-10-19 11:16 | Outpatient (AMB) | payer MEDICARE, SELFPAY ==
--- NOTE | 2024-10-19 11:20 | A.OFFPC_ITS ---
Vital Signs 10/19/24 11:25 Height 5 ft 7 in Weight 171 lb BMI 26.8 BP 130/78 Blood Pressure Location Rt brachial Position Sitting Pulse 84 Pulse Source Pulse Oximeter Temp 98.6 F Temp Source Temporal Artery Scan Pulse Oximetry (%) 96 Oxygen Delivery Method Room Air Intake Visit Reasons: follow up Intake Note: Artemio presents in the office today for a follow up to emmanuel and his cardiology appointment. Allergies No Known Allergies Allergy (Verified 10/19/24 11:23) Tobacco use date assessed: 10/19/24 Dental Screening Dental Screen Date: 10/19/24 Did you have a dental visit in the last 12 months?: No Did you have a dental problem in the last 6 months where you did not have access to dental care?: No Was dental information given to patient?: Patient has dentist HPI HPI Comments History of Present Illness Details This is an 84-year-old male with a past medical history of anemia, coronary artery disease, BPH, type 2 diabetes, hypertension, gastric ulcers, nodule of the right lung, osteoporosis and prostate cancer presenting for follow up. He was last seen for hospital follow up: He was admitted 07/21/24 to 07/25/24 for worsening chest pain over a week. ACS work up was negative. Medications were changed due to hypotension and sinus pause. Echo showed LVEF 55-60%, no wall motion abnormalities, mild dilation of aortic root (4.2cm) but normal when indexed for BSA. Cardiac cath showed no critical lesion. LDL 14. Course complicated by delirium which resolved. Metoprolol decreased to 25 mg daily and started on Isosorbide mononitrate 30 mg daily. Telmisartan d/c due to hypotension. Since then he saw Cardiology and they increase metoprolol to 25 mg twice daily for tachycardia. Heart rate is normal today. He denies chest pain or shortness of breath. Coronary artery disease- Patient had cardiac catheterizations 06/2022 with stents placed to RCA x2. Note indicates 2 additional stents were needed due to RCA dissection. He had an other cardiac catheterization due to chest pain in 12/18/2022. One of the stents had failed so he had stent #5 placed to RCA. Chest pain improved but did not resolve. Underwent another cardiac catheterization 07/19/2023. Chest pain escalated and so he had another catheterization on 10/20/2023 and they placed a stent to the LAD. Quit smoking 47 years ago. Quit drinking 45 years ago. Medications reconciled. He was on Repatha, but the copay was too high. Now takes Crestor. He had a neuropsych evaluation which was consistent with mild cognitive impairment and mild depression. Recommendations were reviewed with his family at that time. He had a geriatric consult. His daughter message me that his memory has been getting worse, and he also agrees with this over the past few months. It is frustrating for him when he can not remember something or loses something when he puts it down. 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 He had a steroid injection on Wednesday which has helped. Interested in physical therapy. They are not interested in surgical intervention given his history of cardiovascular disease and age. Type II diabetes-Taking Jardiance. Does not monitor glucose. Hemoglobin A1c is 6.3%. Recurrent UTIs, prostate cancer-diagnosed with prostate cancer in 2021. In remission. Followed by Dr. Scott. ROS: Constitutional: No unexplained weight loss, fever, chills or fatigue. Eyes: No vision changes Respiratory: No shortness of breath or cough. Cardiovascular: No chest pain or pedal edema. Gastrointestinal: No anorexia, nausea, vomiting or diarrhea. No abdominal pain Neurologic: No headache, syncope, unilateral weakness, ataxia Physical exam: Constitutional: Alert, in no distress. Neck: Supple, Full range of motion. No lymphadenopathy. Respiratory: Clear to auscultation. Cardiovascular: S1 S2 regular. No murmurs. Abdomen: Soft, nontender, no palpable masses, rebound or guarding. Extremities: Warm and well perfused. No clubbing, cyanosis or edema. Psychiatric: Normal mood and affect [facility] Medical History (Updated 10/20/24 @ 17:22 by GHAZAL Steinberg) Left shoulder pain Bilateral shoulder pain Chest pain Hospital discharge follow-up Shingles Mild cognitive impairment Vertigo Pancytopenia Gastric ulcer Memory loss Bilateral hearing loss Bilateral tinnitus Lung nodule Anemia Prostate cancer Osteoporosis History of diverticulitis Wound dehiscence Dizziness Type 2 diabetes mellitus HLD (hyperlipidemia) CAD (coronary artery disease) Surgical History Hx of bladder repair surgery Knee joint replacement status History of coronary artery stent placement History of colostomy reversal Social History (Updated 10/19/24 @ 11:24 by Erin Machuca MA) Household Members: None Housing: Apartment Alcohol intake: former Patient Tobacco Use Status: Former Tobacco user Cigarette Packs Per Day: 1 Years Smoked: 14 e-Cigarette/Vaping Use: Never Used Second Hand Smoke Exposure: No service: No Current occupational status: retired Current occupational exposures/hazards: No Gender identity: Male Cognitive needs: Yes (Memory issues) Hearing needs: Yes (Hearing loss ) Vision needs: Yes (glasses) Questionnaire Thrive Questionnaire Date Thrive assessed: 08/31/24 I am a: Patient What is your living situation today?: I have a steady place to live Within the past 12 months, did the food you bought not last and you didn't have the money to get more?: I choose not to answer this question Within the past 12 months, did you worry whether your food would run out before you got money to buy more?: I choose not to answer this question Do you have trouble paying for medicines?: I choose not to answer this question Do you have trouble getting transportation to medical appointments?: I choose not to answer this question Do you have trouble paying your heating and electricity bill?: I choose not to answer this question Do you have trouble taking care of your child, family member or friend?: I choose not to answer this question Do you have trouble with day-to-day activities such as bathing, preparing meals, shopping, managing finances, etc.?: I choose not to answer this question Are you currently unemployed and looking for a job?: I choose not to answer this question Are you interested in more education?: I choose not to answer this question Please select the resources that you would like help with: None Currently or been in a relationship where the following occur: I choose not to answer THRIVE Score: 0 AUDIT C Alcohol Use Questionnaire (AUDIT-C) 3. How often do you have six or more drinks on one occasion?: Never Total Score: 0 NINA-7 AMB Questionnaire NINA-7 Date NINA - 7 assessed: 08/31/24 Source: Developed by Drs. Ryan López, Emily Hernandez, Jordan Kuhn and colleagues, with an educational katy from [employer]. Physical exam (Primary Care) Vital Signs: Last Vital Signs Temp 98.6 F 10/19/24 11:25 Pulse 84 10/19/24 11:25 BP 130/78 10/19/24 11:25 Pulse Ox 96 10/19/24 11:25 Oxygen Delivery Method Room Air 10/19/24 11:25 BMI result Body Mass Index 26.8 Tobacco/Smoking Status: Tobacco use Status Tobacco use date assessed 10/19/24 10/19/24 11:27 Patient Tobacco Use Status Former Tobacco user 10/19/24 11:24 e-Cigarette/Vaping Use Never Used 10/19/24 11:24 Thrive Assessment: Date of Thrive Assessment Date Thrive assessed 08/31/24 10/19/24 11:21 Currently or been in a relationship where the following occur: I choose not to answer Results AMB Hemoglobin A1c AMB Hemoglobin A1c 6.3 % Last Edit by Erin Machuca MA on 10/19/24 11:50 Results Reviewed Results Reviewed: Laboratory Last Values Hgb A1c (Clinic) 6.3 % (4.0-6.0) H 10/19/24 11:49 Coding Level of Care Code Est Pt Level 4 (19557) Complex EM visit Add On G2211 Diagnoses Type 2 diabetes mellitus with other specified complication, without long-term current use of insulin E11.69 Diabetes mellitus complication status: with other specified complication Diabetes mellitus [facility] insulin use: without [facility] use Coronary artery disease involving [place] coronary artery of [place] heart without angina pectoris I25.10 Associated angina: without angina Coronary Disease-Associated Artery/Lesion type: [place] artery [place] vs. transplanted heart: [place] heart Pure hypercholesterolemia E78.00 Hyperlipidemia type: pure hypercholesterolemia Prostate cancer C61 Mild cognitive impairment G31.84 Chronic left shoulder pain M25.512; G89.29 Chronicity: chronic Assessment & Plan Assessment & Plan (1) Type 2 diabetes mellitus: Code(s): E11.9 - Type 2 diabetes mellitus without complications Category: Medical Qualifiers: Diabetes mellitus complication status: with other specified complication Diabetes mellitus terminal [facility]man insulin use: without [facility] use Qualified Code(s): E11.69 - Type 2 diabetes mellitus with other specified complication (2) CAD (coronary artery disease): Code(s): I25.10 - Atherosclerotic heart disease of [place] coronary artery without angina pectoris Category: Medical Qualifiers: Associated angina: without angina Coronary Disease-Associated Artery/Lesion type: [place] artery [place] vs. transplanted heart: [place] heart Qualified Code(s): I25.10 - Atherosclerotic heart disease of [place] coronary artery without angina pectoris (3) HLD (hyperlipidemia): Code(s): E78.5 - Hyperlipidemia, unspecified Category: Medical Qualifiers: Hyperlipidemia type: pure hypercholesterolemia Qualified Code(s): E78.00 - Pure hypercholesterolemia, unspecified (4) Prostate cancer: Code(s): C61 - Malignant neoplasm of prostate Category: Medical (5) Mild cognitive impairment: Code(s): G31.84 - Mild cognitive impairment of uncertain or unknown etiology Category: Medical (6) Left shoulder pain: Code(s): M25.512 - Pain in left shoulder Category: Medical Qualifiers: Chronicity: chronic Qualified Code(s): M25.512 - Pain in left shoulder; G89.29 - Other chronic pain Plan Continue Jardiance. Diabetes is well-controlled. Continue rosuvastatin for hyperlipidemia. Patient is followed by Cardiology. Tolerating increased dose of metoprolol for tachycardia. Followed by urology. No known recurrence of prostate cancer. Osteoporosis-continue Fosamax. Cognitive impairment-referred to Neurology to discuss medication options. Left shoulder pain-improvement after cortisone injection this week. Referred to physical therapy. Orders: Orders AMB Hemoglobin A1c 10/19/24 Z13.9 - Encounter for screening, unspecified PT Evaluation and Treatment 10/19/24 M25.511 - Pain in right shoulder, M25.512 - Pain in left shoulder Referrals Neurology Referral G31.84 - Mild cognitive impairment of uncertain or unknown etiology
[2024-10-19 11:25] VITALS: BP 130/78; PULSE 84; TEMP 37; O2SAT 96; BMI 26.8
--- OUTSIDE RECORDS SUMMARY | 2024-10-19 12:59 | XMS_ITS | Clinical Summary ---
Author Organization [address] [facility] Address [address] [place] [address] Phone Care Team Providers Care Cnc Mill Operator Name Role Phone Barbie Rico Primary Care Provider [phone] Allergies Active Allergy Reactions Criticality Noted Date Comments Codeine Nausea And Vomiting 03/18/2021 Morphine Nausea And Vomiting 03/18/2021 Penicillins 03/18/2021 Other Reaction(s): Rash/Dermatitis As a child, rash, tolerates cefazolin Medications empagliflozin (Jardiance) 10 mg tablet Take by mouth. 06/10/19 24 Active alendronate (FOSAMAX) 70 mg tablet Take [...] by mouth 1 (one) time each day. 07/09/19 23 Active cyanocobalamin (VITAMIN B-12) 100 mcg tablet 10 tablets (1,000 mcg total) 1 (one) time each day. 04/17/19 22 Active ferrous sulfate 325 mg (65 mg elemental iron) tablet Take 1 tablet (325 mg total) by mouth 2 (two) times a day. 04/17/19 22 Active ranolazine (RANEXA) 500 mg 12 hr tablet Take 1 tablet (500 mg total) by mouth 2 (two) times a day. Take 1 Tablet by mouth 2 times daily for 360 days 180 each 1 01/18/20 24 025 Active telmisartan (MICARDIS) 80 mg tabletIndicatio ns:Coronary artery disease involving [place] coronary artery of [place] heart without angina pectoris Take 1 tablet (80 mg total) by mouth 1 (one) time each day. Active rosuvastatin (CRESTOR) 20 mg tablet Take 1 tablet (20 mg total) by mouth 1 (one) time each day. 90 tablet 1 05/31/19 25 Active isosorbide mononitrate (IMDUR) 30 mg 24 hr tablet Take 1 tablet (30 mg total) by mouth 1 (one) time each day. Do not crush or chew. 90 tablet 08/18/19 25 Active omeprazole (PriLOSEC) [address] capsule Take 1 capsule (20 mg total) by mouth 1 (one) time each day. Do not crush or chew. Active clopidogreL (PLAVIX) 75 mg tablet Take 1 tablet by mouth once daily 90 tablet 1 09/13/19 25 Active metoprolol succinate (TOPROL-XL) 25 mg 24 hr tablet Take 1 tablet (25 mg total) by mouth 1 (one) time each day. 90 tablet 3 09/30/19 25 Active nitroglycerin (NITROSTAT) 0.4 mg SL tablet DISSOLVE ONE TABLET UNDER THE TONGUE EVERY 5 MINUTES NEEDED FOR CHEST PAIN. DO NOT EXCEED A TOTAL OF 3 DOSES IN 15 MINUTES 100 tablet 10/06/19 25 Active nitroglycerin (NITROSTAT) 0.4 mg SL tablet DISSOLVE ONE TABLET UNDER THE TONGUE EVERY 5 MINUTES NEEDED FOR CHEST PAIN. DO NOT EXCEED A TOTAL OF 3 DOSES IN 15 MINUTES 100 tablet 1 04/13/19 25 025 Discontinued metoprolol succinate (TOPROL-XL) 25 mg 24 hr tablet Take 1 tablet (25 mg total) by mouth 1 (one) time each day. 90 tablet 08/18/19 25 025 Discontinued(Re order) Active Problems Problem Noted Date Diagnosed Date Sinus tachycardia 09/11/2024 Assessment & Plan (09/11/2024 3:10 PM EDT): Has had sinus tachycardia in past with more recent sinus bradycardia on metoprolol 50 mg daily. Metoprolol was reduced. Rechecked several times during visit and sustained rates in 110s. Will get 24 hr holter monitor as well as CBC. Orthostatics negative, but did encourage hydration which he historically has not been good at doing. Depending on results, may need to go up to Metoprolol 37.5 mg daily. Orders: CBC and differential; Future Pure hypercholesterolemia 05/24/2024 Assessment & Plan (09/11/2024 3:10 PM EDT): Continue with rosuvastatin. Assessment & Plan (05/25/2024 4:13 PM EDT): [...] Symptomatic bradycardia 12/24/2022 Overview (01/25/2024): Admitted to [facility] with symptomatic bradycardia - likely related to [...] lymphadenopathy 11/23/2022 Coronary artery disease 08/20/2022 Overview (09/11/2024): June 2022 - due to exertional shortenss [...] of a side branch of the D1 June 2024 - Presented to the hospital with chest pain with repeat catheterization showing 40% stenosis of the ostium of the left main, mild diffuse disease of the LAD with 30% stenosis of the proximal D1 with diffuse ISR of previously placed stent, 50% stenosis of the mid left circumflex, 50% stenosis in the mid RCA with in-stent restenosis of previous placed stent and 30% stenosis in the mid subsection of the mid RCA with ISR of the previously placed stent with IFR assessment of mid RCA ISR being negative Assessment & Plan (09/11/2024 3:10 PM EDT): Recent angiogram showing ISR of previous stents but with iFR negative assessment of RCA stent. Echocardiogram from November 2022 showed preserved LV systolic function. Medical therapy recommended with stable symptoms despite elevated heart rates today. Given evidence of ISR in multiple stents in the future consider fish oil and colchicine. Continue with aspirin, clopidogrel, empagliflozin, isosorbide, metoprolol, telmisartan and ranolazine. We discussed risk reduction through lifestyle choices including healthy diet, routine exercise and weight management. Orders: ECG 12 lead Cardiac holter monitor (<= 48 hours); Future Assessment & Plan (05/25/2024 4:13 PM EDT): [...] 06/30/2021 Primary hypertension 03/18/2021 Assessment & Plan (09/11/2024 3:10 PM EDT): Controlled. Continue with metoprolol, isosorbide, telmisartan. We discussed risk reduction through lifestyle choices including healthy diet, routine exercise and weight management. Assessment & Plan (05/25/2024 4:13 PM EDT): [...] Encounters Date Type Department Care Team Description 09/29/2024 Telephone [facility] Cardiology [facility] [address] [place] [address] Palomo Ochoa NP Med Refill (Metoprolol) 09/11/2024 2:10 PM EDT Office Visit [facility] Cardiology [facility] [address] [place] [address] Palomo Ochoa NP Coronary artery disease involving [place] coronary artery of [place] heart with angina pectoris (CMS/HCC V24) (Primary Dx); Primary hypertension; Pure hypercholesterolemia ; Sinus tachycardia; Dizziness and giddiness 09/11/2024 9:30 AM EDT Ancillary Procedure [facility] Cardiology [facility] [address] [place] [id number] Coronary artery disease involving [place] coronary artery of [place] heart with angina pectoris (CMS/HCC V24); Dizziness and giddiness 08/17/2024 Telephone [facility] [address] [place] [address] Corey Camacho MD Med Refill 07/25/2024 Telephone [facility] [address] [facility] [address] [place] [address] Palomo Ochoa NP 07/21/2024 Telephone [facility] [address] [place] [address] Corey aCmacho MD Chest Pain from Last 3 Months Surgical History Surgery Date Site/Laterality Comments BACK SURGERY PROCEDURE: HISTORICAL BACK SURGERY OTHER SURGICAL HISTORY PROCEDURE: [place] COLECTOMY PARTIAL W/ANASTOMOSIS OTHER SURGICAL HISTORY PROCEDURE: HISTORY OTHER; COMMENT: knee replacement OTHER SURGICAL HISTORY PROCEDURE: HISTORY OTHER; COMMENT: bladder repair CARDIAC CATHETERIZATION DONE ON 07/25/2024 AT [facility] INDICATIONS: Unstable angina Medical History Medical History Date Comments DDD (degenerative disc disease), lumbar DX:DDD (degenerative disc disease), lumbar Diabetes ([facility]/HCC V24, CMS/HCC V28) DX:Diabetes (HCC) Dyspnea, unspecified [...] Sign Reading Time Taken Comments Blood Pressure 110/80 09/11/2024 1:25 PM EDT Pulse 109 05/25/2024 3:27 PM EDT Temperature - - Respiratory Rate - - Oxygen Saturation 97% 09/11/2024 1:25 PM EDT Inhaled Oxygen Concentration - - Weight 78.9 kg (174 lb) 09/11/2024 1:25 PM EDT Height 172.7 cm (5' 8 ) 09/11/2024 1:25 PM EDT Body Mass Index 26.46 09/11/2024 1:25 PM EDT Plan of Treatment Upcoming Encounters Date Type Department Care Team (Ling st Contact Info) Description 12/13/2024 1:40 PM EDT Office Visit [facility] Cardiology [facility] [address] [facility] [address] [place] [address] Palomo Ochoa NP [address] [place] [address] [address] [place] [address] Health Maintenance Due Date Last Done Comments Diabetes: Annual GFR (Glomerular Filtration Rate) 1941 Diabetes: Annual Foot Exam 1951 Diabetes: Annual Retina Eye Exam 1950 DTaP,Tdap,and Td Vaccines (1 - Tdap) 02/12/1960 RSV Immunization Adult Patients (1 - 1-dose 75+ series) 02/12/2016 Cholesterol Screening (Lipid Panel) 01/27/2022 Falls Risk Assessment 01/27/2022 Medicare Annual Wellness Visit 01/27/2022 Social Influencers of Health Screening 01/27/2022 Hypertension/CHF/CAD Annual BMP Blood Test 02/08/2022 COVID-19 Vaccine (2023-2 5 season) 2023 07/23/2021, 07/24/2020, 06/26/2020 Diabetes: Annual Urine Albumin-Creatinine Ratio (uACR) 01/07/2024 Diabetes: Blood Sugar Contro l Test (HGBA1C) 01/07/2024 Depression Screening 03/01/2024 Influenza Vaccine (#1) 2024 04/17/2021 Pneumococcal Vaccine: 50+ Years Completed 01/07/2023 MMR Vaccines Aged Out 06/06/2024 No longer eligi ble based on patient's age to complete this topic Zoster Vaccines Completed 08/19/2024, 06/06/2024 HIB Vaccines Aged Out No longer eligi [...] on patient's age to complete this topic Procedures Procedure Name Priority Date/Time Associated Diagnosis Comments ECG 12-LEAD Routine 09/11/2024 3:10 PM EDT Coronary artery disease involving [place] coronary artery of [place] heart with angina pectoris (CMS/HCC V24) CBC WITH AUTO DIFFERENTIAL Routine 09/11/2024 2:23 PM EDT Sinus tachycardia CBC AND DIFFERENTIAL Routine 09/11/2024 2:23 PM EDT Sinus tachycardia CARDIAC HOLTER MONITOR (REPORT GENERATED IN HOUSE) Routine 09/11/2024 2:17 PM EDT Coronary artery disease involving [place] coronary artery of [place] heart with angina pectoris (CMS/HCC V24) Dizziness and giddiness from Last 3 Months Results * ECG 12 lead (09/11/2024 3:10 PM EDT) Ventricular Rate ECG 110 BPM GEMUSE Atrial Rate 110 BPM GEMUSE P-R Interval 192 ms GEMUSE QRS Duration 92 ms GEMUSE Q-T Interval 332 ms GEMUSE QTc 449 ms GEMUSE P Wave [place] 37 degrees GEMUSE R [place] -36 degrees GEMUSE T [place] 84 degrees GEMUSE ECG Interpretation Sinus tachycardia Left axis deviation Abnormal ECG When compared with ECG of 25-JAN-2024 13:17, Vent. rate has increased BY 46 BPM Confirmed by COREY CAMACHO ([id number]) on 09/11/2024 5:05:39 PM GEMUSE 09/11/2024 1:35 PM EDT 09/11/2024 5:05 PM EDT us Palomo Gabriela TUBULAR SPLITTING MACHINE TENDER ECG ORDERABLES Edited Resu lt - Final GEMUSE * (ABNORMAL) CBC auto differential (09/11/2024 2:23 PM EDT) WBC 5.6 3.4 - 10.8 x10E3/uL [facility] RBC 4.34 4.14 - 5.80 x10E6/uL [facility] 1 Hemoglobin 12.2(L) 13.0 - 17.7 g/dL [facility] 1 Hematocrit 37.2(L) 37.5 - 51.0 % [facility] 1 MCV 86 79 - 97 fL [facility] 1 MCH 28.1 26.6 - 33.0 pg [facility] 1 MCHC 32.8 31.5 - 35.7 g/dL [facility] 1 RDW 13.2 11.6 - 15.4 % [facility] 1 Platelets 176 150 - 450 x10E3/uL [facility] 1 Neutrophils 77 Not Estab. % [facility] 1 Lymphocytes 11 Not Estab. % [facility] 1 Monocytes 8 Not Estab. % [facility] 1 Eosinophils 2 Not Estab. % [facility] 1 Basophils 1 Not Estab. % [facility] 1 Neutrophils Absolute 4.3 1.4 - 7.0 x10E3/uL [facility] 1 Lymphocytes Absolute 0.6(L) 0.7 - 3.1 x10E3/uL [facility] 1 Monocytes Absolute 0.5 0.1 - 0.9 x10E3/uL [facility] 1 Eosinophils Absolute 0.1 0.0 - 0.4 x10E3/uL [facility] 1 Basophils Absolute 0.0 0.0 - 0.2 x10E3/uL [facility] 1 Immature Granulocytes Relative 1 Not Estab. % [facility] 1 Immature Grans (Abs) 0.0 0.0 - 0.1 x10E3/uL [facility] 1 Blood Venous blood specimen / Unknown 09/11/2024 2:23 PM EDT 09/11/2024 Narrative [facility] 1 - 09/12/2024 8:07 AM EDT Performed at: [facility] [id number] Veneer Clipper: Courtney Bain MD, Phone: [phone] us Palomo Ochoa NP LAB BLOOD ORDERABLES Final Result [facility] 1 * CARDIAC HOLTER MONITOR (REPORT GENERATED IN HOUSE) (09/11/2024 2:17 PM EDT) Anatomical Region Laterality Modality Cardiac Diagnost ic Impressions 09/21/2024 11:01 AM EDT 1: Normal Sinus Rhythm with brief periods of Sinus Tachycardia. 2: Heart rate range was 55- 124 bpm with an average of 91 bpm. Total time in Sinus Tachycardia was 6 hrs 8 mins. 3: Rare PACs and PVCs. 4: No pauses noted. Longest R-R 1.4 sec. 5: No diary returned for heart rate correlation. 6: Leads disconnected at 8:25 am. No data available after that time. Total time recorded was 18 hrs 11 mins. Narrative 09/21/2024 11:01 AM EDT [facility] [address] [place] [id number] TEL: FAX: Type of test: 24 hour Holter Monitor (Monitor disconnected after 18 hrs.) Date of test: 09/11/24 Ordering provider: Corey Ochoa NP Reason for Test: Tachycardia us Palomo Ochoa NP CV CARDIAC SERVICES PROCEDU RES Final Result from Last 3 Months Insurance [employer] Care Teams Cnc Mill Operator Relationship Specialty Start Date End Date Barbie Rico PA [address] [place] [address] PCP - General 12/23/23
== END 2024-10-19 11:55 | disposition home or self-care (01) ==
LOC: HO.HMCFM 11:16
PROVIDERS: PCP Physician Assistant Medical; Visit Provider Physician Assistant Medical
DX: Z13.9 Encounter for screening, unspecified (principal)

== ENCOUNTER → 2024-10-19 11:16 | Outpatient (BNVA) | payer MEDICARE, SELFPAY | PROVIDERS: PCP Physician Assistant Medical; Visit Provider Physician Assistant Medical | DX: E11.69 Type 2 diabetes mellitus with other specified complication (principal); I25.10 Atherosclerotic heart disease of native coronary artery without angina pectoris; E78.00 Pure hypercholesterolemia, unspecified; C61 Malignant neoplasm of prostate; G31.84 Mild cognitive impairment of uncertain or unknown etiology; M25.512 Pain in left shoulder; G89.29 Other chronic pain; M81.0 Age-related osteoporosis without current pathological fracture; I10 Essential (primary) hypertension; Z79.84 Long term (current) use of oral hypoglycemic drugs; Z79.899 Other long term (current) drug therapy; Z95.5 Presence of coronary angioplasty implant and graft | CPT/HCPCS: 83036; 99212 ==

== ENCOUNTER 2024-10-23 14:33 | Outpatient (REF) | payer MEDICARE, SELFPAY ==
[2024-10-23 17:28] LABS: MANUAL DIFF FLAG NO
[2024-10-23 17:30] LABS: Hematocrit 37.8 % (42.0-52.0); Hemoglobin 12.1 g/dl (14.0-18.0); Imm Gran Abs Auto 0.04 X10*3/uL (0.00-0.03); Imm Gran Pct Auto 0.6 % (0.0-0.4); Lymphocytes Absolute Auto 0.9 X10*3/uL (1.2-4.9); Mean Corpuscular HGB Conc 32.0 g/dl (31.0-36.0); Mean Corpuscular Hemoglobin 26.4 pg (27.0-33.0); Mean Corpuscular Volume 82.5 fL (80.0-98.0); NRBC Abs Auto 0.000 X10*3/uL (0.0-0.012); NRBC Pct Auto 0.0 /100WBC (0.0-0.2); Platelet Count 140 X10*3/uL (160-400); Red Blood Count 4.58 X10*6/uL (4.60-5.80); White Blood Count 6.3 X10*3/uL (4.8-10.8)
[2024-10-23 18:07] LABS: Anion Gap 12 (12-20); Blood Urea Nitrogen 18 mg/dL (9-16); Calcium 8.9 mg/dL (8.4-10.2); Carbon Dioxide 23 mmol/L (22-29); Chloride 108 mmol/L (96-108); Estimated Glomerular Filt Rate > 60; Potassium 4.1 mmol/L (3.3-5.1); Sodium 139 mmol/L (135-145)
== END 2024-10-23 14:34 | disposition home or self-care (01) ==
LOC: HO.WFDLDS 14:33
PROVIDERS: PCP Physician Assistant Medical; Visit Provider Physician Assistant Medical
DX: Z01.818 Encounter for other preprocedural examination (principal); E11.9 Type 2 diabetes mellitus without complications; E78.5 Hyperlipidemia, unspecified; I25.10 Atherosclerotic heart disease of native coronary artery without angina pectoris; D61.818 Other pancytopenia
CPT/HCPCS: 36415; 80048; 85025; 93005; 99212

== ENCOUNTER 2024-10-23 14:33 | Outpatient (AMB) | payer MEDICARE, SELFPAY ==
--- NOTE | 2024-10-23 14:40 | A.OFFPC_ITS ---
Vital Signs 10/23/24 14:43 Height 5 ft 7 in Weight 171 lb BMI 26.8 BP 138/70 Blood Pressure Location Rt brachial Position Sitting Pulse 80 Pulse Source Pulse Oximeter Temp 98.6 F Temp Source Temporal Artery Scan Pulse Oximetry (%) 97 Oxygen Delivery Method Room Air Intake Visit Reasons: preop Intake Note: Artemio presents in the office today for a pre-op for cataract surgery on 11/13/2024. Allergies No Known Allergies Allergy (Verified 10/23/24 14:42) Medication List - Last Reconciled 10/23/24 by GHAZAL Steinberg alendronate 70 mg PO QWEEK aspirin (Adult Aspirin Regimen) 81 mg PO DAILY bicalutamide 50 mg PO DAILY cholecalciferol (vitamin D3) 10 mcg PO DAILY clopidogrel 75 mg PO DAILY cyanocobalamin (vitamin B-12) 1,000 mcg PO DAILY empagliflozin (Jardiance) 10 mg PO DAILY ferrous sulfate ER 142 mg PO DAILY isosorbide mononitrate ER 30 mg PO DAILY meclizine 12.5 mg PO BID methenamine hippurate 1 g PO DAILY metoprolol tartrate 25 mg PO BID omeprazole 20 mg PO DAILY ranolazine ER 500 mg PO BID rosuvastatin 20 mg PO DAILY vitamin K2 100 mcg PO DAILY Tobacco use date assessed: 10/23/24 Dental Screening Dental Screen Date: 10/23/24 Did you have a dental visit in the last 12 months?: No Did you have a dental problem in the last 6 months where you did not have access to dental care?: No Was dental information given to patient?: Patient declined HPI HPI Comments History of Present Illness Details This is an 84-year-old male with a past medical history of pancytopenia, coronary artery disease, BPH, mild cognitive impairment, type 2 diabetes, hypertension, gastric ulcers, nodule of the right lung, osteoporosis and prostate cancer presenting for a preop exam. He has cataract surgery scheduled in October for the left and right eyes. He is followed by Cardiology for coronary artery disease. He denies chest pain, shortness of breath, dizziness and syncope. Patient had cardiac catheterizations 06/2022 with stents placed to RCA x2. Note indicates 2 additional stents were needed due to RCA dissection. He had an other cardiac catheterization due to chest pain in 12/18/2022. One of the stents had failed so he had stent #5 placed to RCA. Chest pain improved but did not resolve. Underwent another cardiac catheterization 07/19/2023. Chest pain escalated and so he had another catheterization on 10/20/2023 and they placed a stent to the LAD. Quit smoking 47 years ago. Quit drinking 45 years ago. He is taking all of his medications as prescribed. He is followed by hematology for pancytopenia. Denies night sweats, weight loss , fevers, chills. Denies bleeding. Type II diabetes-Taking Jardiance. Hemoglobin A1c is 6.3%. Recurrent UTIs, prostate cancer-diagnosed with prostate cancer in 2021. In remission. Followed by Dr. Scott. ROS: Constitutional: No unexplained weight loss, fever, chills, fatigue or night sweats. Eyes: No eye pain, eye redness, eye discharge. ENT: No ear pain,, sneezing, congestion, runny nose or sore throat. Respiratory: No shortness of breath, cough or sputum production. Cardiovascular: No chest pain, chest pressure or chest discomfort. No palpitations or pedal edema. Gastrointestinal: No anorexia, nausea, vomiting or diarrhea. No abdominal pain or blood in stool. Genitourinary: No dysuria, hematuria, urinary frequency. Neurologic: No headache, dizziness, syncope Skin: No rash Physical exam: Constitutional: Alert, in no distress. Neck: Supple, Full range of motion. No lymphadenopathy. Respiratory: Clear to auscultation. Cardiovascular: S1 S2 regular. No murmurs. Abdomen: Soft, nontender, no palpable masses, rebound or guarding. Extremities: Warm and well perfused. No clubbing, cyanosis or edema. Psychiatric: Normal mood and affect [facility] Medical History (Updated 10/20/24 @ 17:22 by GHAZAL Steinberg) Left shoulder pain Bilateral shoulder pain Chest pain Hospital discharge follow-up Shingles Mild cognitive impairment Vertigo Pancytopenia Gastric ulcer Memory loss Bilateral hearing loss Bilateral tinnitus Lung nodule Anemia Prostate cancer Osteoporosis History of diverticulitis Wound dehiscence Dizziness Type 2 diabetes mellitus HLD (hyperlipidemia) CAD (coronary artery disease) Surgical History Hx of bladder repair surgery Knee joint replacement status History of coronary artery stent placement History of colostomy reversal Social History (Updated 10/23/24 @ 14:42 by Erin Machuca MA) Household Members: None Housing: Apartment Alcohol intake: former Patient Tobacco Use Status: Former Tobacco user Cigarette Packs Per Day: 1 Years Smoked: 14 e-Cigarette/Vaping Use: Never Used Second Hand Smoke Exposure: No service: No Current occupational status: retired Current occupational exposures/hazards: No Gender identity: Male Cognitive needs: Yes (Memory issues) Hearing needs: Yes (Hearing loss ) Vision needs: Yes (glasses) Questionnaire Thrive Questionnaire Date Thrive assessed: 08/31/24 I am a: Patient What is your living situation today?: I have a steady place to live Within the past 12 months, did the food you bought not last and you didn't have the money to get more?: I choose not to answer this question Within the past 12 months, did you worry whether your food would run out before you got money to buy more?: I choose not to answer this question Do you have trouble paying for medicines?: I choose not to answer this question Do you have trouble getting transportation to medical appointments?: I choose not to answer this question Do you have trouble paying your heating and electricity bill?: I choose not to a nswer this question Do you have trouble taking care of your child, family member or friend?: I choose not to answer this question Do you have trouble with day-to-day activities such as bathing, preparing meals, shopping, managing finances, etc.?: I choose not to answer this question Are you currently unemployed and looking for a job?: I choose not to answer this question Are you interested in more education?: I choose not to answer this question Please select the resources that you would like help with: None Currently or been in a relationship where the following occur: I choose not to answer THRIVE Score: 0 NINA-7 AMB Questionnaire NINA-7 Date NINA - 7 assessed: 08/31/24 Source: Developed by Drs. Ryan López, Emily Hernandez, Jordan Kuhn and colleagues, with an educational katy from [employer]. Physical exam (Primary Care) Vital Signs: Last Vital Signs Temp 98.6 F 10/23/24 14:43 Pulse 80 10/23/24 14:43 BP 138/70 10/23/24 14:43 Pulse Ox 97 10/23/24 14:43 Oxygen Delivery Method Room Air 10/23/24 14:43 BMI result Body Mass Index 26.8 Tobacco/Smoking Status: Tobacco use Status Tobacco use date assessed 10/23/24 10/23/24 14:46 Patient Tobacco Use Status Former Tobacco user 10/23/24 14:42 e-Cigarette/Vaping Use Never Used 10/23/24 14:42 Thrive Assessment: Date of Thrive Assessment Date Thrive assessed 08/31/24 10/23/24 14:41 Currently or been in a relationship where the following occur: I choose not to answer Office Procedures EKG Details: The EKG today shows normal sinus rhythm and 78 beats per minute. Reviewed by Dr. Delgadillo. [id number]-[id number], Complete Coding Level of Care Code Est Pt Level 4 (54878) Complex EM visit Add On G2211 Diagnoses Encounter for pre-operative examination Z01.818 CPT Codes EKG - CPT: 94512-[id number], Complete ([id number]) Assessment & Plan Assessment & Plan (1) Encounter for pre-operative examination: Code(s): Z01.818 - Encounter for other preprocedural examination Plan In summary this is an 84-year-old male with a past medical history of coronary artery disease, controlled type 2 diabetes, prostate cancer, pancytopenia and mild cognitive impairment presenting for a preoperative examination. METS 4. He is at a moderate risk of complications for this low risk procedure. Given history of pancytopenia and diabetes CBC and BMP will be checked today. His EKG is normal. He has no anginal symptoms. Pending lab results, he can proceed with surgery as planned. Orders: Orders AMB EKG-In Office Today Z01.818 - Encounter for other preprocedural examination Complete Blood Count Auto Diff Today Z01.818 - Encounter for other preprocedural examination Basic Metabolic Panel Today Z01.818 - Encounter for other preprocedural examination
[2024-10-23 14:43] VITALS: BP 138/70; PULSE 80; TEMP 37; O2SAT 97; BMI 26.8
--- OUTSIDE RECORDS SUMMARY | 2024-10-23 16:18 | XMS_ITS | Clinical Summary ---
Author Organization [address] [facility] Address [address] [place] [address] Phone Care Team Providers Care Road Sign Installer Name Role Phone Barbie Rico Primary Care Provider [phone] Allergies Active Allergy Reactions Criticality Noted Date [...] 80 mg tabletIndicatio ns:Coronary artery disease involving lone pine coronary artery of lone pine heart without angina pectoris Take 1 tablet [...] Symptomatic bradycardia 12/24/2022 Overview (01/25/2024): Admitted to [facility] with symptomatic bradycardia - likely related [...] Type Department Care Team Description 09/29/2024 Telephone [facility] [address] [facility] [address] [place] [address] Palomo Ochoa NP 09/11/2024 2:10 PM EDT Office Visit [facility] [address] [address] [place] [address] Palomo Ochoa NP Coronary artery disease involving lone pine coronary artery of lone pine heart with angina pectoris (CMS/HCC V24) (Primary Dx); Primary hypertension; Pure hypercholesterolemia ; Sinus tachycardia; Dizziness and giddiness 09/11/2024 9:30 AM EDT Ancillary Procedure [facility] [address] [place] [id number] Coronary artery disease involving lone pine coronary artery of lone pine heart with angina pectoris (CMS/HCC V24); Dizziness and giddiness 08/17/2024 Telephone [facility] [address] [place] [address] Corey Camacho MD 07/25/2024 Telephone [facility] [address] [place] [address] Palomo Ochoa NP from Last 3 Months Surgical History Surgery Date Site/Laterality Comments BACK SURGERY PROCEDURE: HISTORICAL BACK SURGERY OTHER SURGICAL HISTORY PROCEDURE: GA COLECTOMY PARTIAL W/ANASTOMOSIS OTHER SURGICAL HISTORY PROCEDURE: HISTORY OTHER; COMMENT: knee replacement OTHER SURGICAL HISTORY PROCEDURE: HISTORY OTHER; COMMENT: bladder repair CARDIAC CATHETERIZATION DONE ON 07/25/2024 AT [facility] INDICATIONS: Unstable angina Medical History Medical History Date Comments DDD (degenerative disc disease), lumbar DX:DDD (degenerative disc disease), lumbar Diabetes ([facility] V24, [facility] V28) DX:Diabetes (HCC) Dyspnea, unspecified DX:Dyspnea, unspecified Osteoarthritis DX:Osteoarthriti s Prostate cancer ([facility] V24, [facility] V28) DX:Prostate cancer (HCC) Chronic lumbar radiculopathy [...] Description 12/13/2024 1:40 PM EDT Office Visit [facility] [address] [place] [id number] Palomo Ochoa NP [address] [place] [address] [address] [place] [address] Health Maintenance Due Date Last Done Comments [...] 3:10 PM EDT Coronary artery disease involving lone pine coronary artery of lone pine heart with angina pectoris (CMS/HCC V24) CBC WITH AUTO DIFFERENTIAL Routine 09/11/2024 2:23 PM EDT Sinus tachycardia CBC AND DIFFERENTIAL Routine 09/11/2024 2:23 PM EDT Sinus tachycardia CARDIAC HOLTER MONITOR (REPORT GENERATED IN HOUSE) Routine 09/11/2024 2:17 PM EDT Coronary artery disease involving lone pine coronary artery of lone pine heart with angina pectoris (CMS/HCC V24) Dizziness and giddiness from Last 3 Months Results * ECG 12 lead (09/11/2024 3:10 PM EDT) Ventricular Rate ECG 110 BPM GEMUSE Atrial Rate 110 BPM GEMUSE P-R Interval 192 ms GEMUSE QRS Duration 92 ms GEMUSE Q-T Interval 332 ms GEMUSE QTc 449 ms GEMUSE P Wave Bowman 37 degrees GEMUSE R Bowman -36 degrees GEMUSE T Bowman 84 degrees GEMUSE ECG Interpretation Sinus tachycardia Left axis deviation Abnormal ECG When compared with ECG of 25-JAN-2024 13:17, Vent. rate has increased BY 46 BPM Confirmed by COREY CAMACHO ([id number]) on 09/11/2024 5:05:39 PM GEMUSE 09/11/2024 1:35 PM EDT 09/11/2024 5:05 PM EDT us Palomo Ochoa NP ECG ORDERABLES Edited Resu lt - Final [...] - 09/12/2024 8:07 AM EDT Performed at: 01 - [facility] [address] [id number] Antenna Installer: Courtney Bain MD, Phone: [phone] Palomo Ochoa CARDIOLOGY CONSULTANT LAB BLOOD ORDERABLES Final Result [facility] 1 [...] 11 mins. Narrative 09/21/2024 11:01 AM EDT [facility] DI[facility]ST[facility] DEPARTMENT [address] [place] [address], [place] [address] TEL: FAX: Type of test: 24 hour Holter Monitor (Monitor disconnected after 18 hrs.) Date of test: 09/11/24 Ordering provider: Corey Ochoa NP Reason for Test: Tachycardia Palomo Ochoa NP [facility] PROCEDU RES Final Result from Last 3 Months Insurance [employer] Care Teams Road Sign Installer Relationship Specialty Start Date End Date Barbie Rico PA [address] [place] [phone] PCP - General 12/23/23
== END 2024-10-23 15:02 | disposition home or self-care (01) ==
LOC: HO.HMCFM 14:36
PROVIDERS: PCP Physician Assistant Medical; Visit Provider Physician Assistant Medical
DX: Z01.818 Encounter for other preprocedural examination (principal)

== ENCOUNTER 2025-01-22 11:31 | Outpatient (REF) | payer MEDICARE, SELFPAY | END 2025-01-22 11:32 | disposition home or self-care (01) | LOC: HO.WFDLDS 11:31 | PROVIDERS: PCP Physician Assistant Medical; Visit Provider Physician Assistant Medical | DX: I10 Essential (primary) hypertension (principal); D61.818 Other pancytopenia; I25.10 Atherosclerotic heart disease of native coronary artery without angina pectoris; E11.69 Type 2 diabetes mellitus with other specified complication; E78.00 Pure hypercholesterolemia, unspecified; C61 Malignant neoplasm of prostate; G31.84 Mild cognitive impairment of uncertain or unknown etiology; D64.9 Anemia, unspecified; R39.9 Unspecified symptoms and signs involving the genitourinary system; M85.80 Other specified disorders of bone density and structure, unspecified site; R00.0 Tachycardia, unspecified; Z87.891 Personal history of nicotine dependence; Z79.899 Other long term (current) drug therapy | CPT/HCPCS: 83036; 93005; 95250; 99212 ==

== ENCOUNTER 2025-01-22 11:31 | Outpatient (AMB) | payer MEDICARE, SELFPAY ==
--- NOTE | 2025-01-22 11:44 | A.OFFPC_ITS ---
Vital Signs 01/22/25 11:49 01/22/25 12:04 Height 5 ft 7 in Weight 173 lb 2 oz BMI 27.1 BP 116/60 Blood Pressure Location Rt brachial Position Sitting Respiration 15 Pulse 125 H 118 H Pulse Source Pulse Oximeter Temp 97.8 F Temp Source Temporal Artery Scan Pulse Oximetry (%) 97 97 Oxygen Delivery Method Room Air Intake Visit Reasons: DM follow up Intake Note: Artemio presents in the office today for a diabetes follow up. Allergies No Known Allergies Allergy (Verified 01/22/25 11:48) Tobacco use date assessed: 01/22/25 Dental Screening Dental Screen Date: 01/22/25 Did you have a dental visit in the last 12 months?: No Did you have a dental problem in the last 6 months where you did not have access to dental care?: No Was dental information given to patient?: Patient declined HPI HPI Comments History of Present Illness Details This is an 84-year-old male with a past medical history of pancytopenia, coronary artery disease, BPH, mild cognitive impairment, type 2 diabetes, hypertension, gastric ulcers, nodule of the right lung, osteoporosis and prostate cancer presenting for follow up. He is followed by Cardiology for coronary artery disease. He denies chest pain, shortness of breath, dizziness and syncope. Patient had cardiac catheterizations 06/2022 with stents placed to RCA x2. Note indicates 2 additional stents were needed due to RCA dissection. He had an other cardiac catheterization due to chest pain in 12/18/2022. One of the stents had failed so he had stent #5 placed to RCA. Chest pain improved but did not resolve. Underwent another cardiac catheterization 07/19/2023. Chest pain escalated and so he had another catheterization on 10/20/2023 and they placed a stent to the LAD. Quit smoking 47 years ago. Quit drinking 45 years ago. He is taking all of his medications as prescribed. Patient has a history of sign a tachycardia fluctuating between 60 and 135 beats per cardiology notes. He does not experience palpitations in his heart rate is elevated or feel dizzy or lightheaded. Per cardiology has been asymptomatic and therefore they will accept he does run tachy and Wali from time to time. Heart rate today is 118. He is followed by hematology for pancytopenia. Denies night sweats, weight loss, fevers, chills. Denies bleeding. Type II diabetes-Taking Jardiance. Hemoglobin A1c is 6.6%. Recurrent UTIs, prostate cancer-diagnosed with prostate cancer in 2021. In remission. Followed by Dr. Scott. He has been evaluated for memory loss and mild cognitive impairment. Patient says that he does notice more brain fog for awhile, but he does not feel like it is affecting his ADLs. He is spending Thanksgiving with his family. He also has some excoriations on his forearms. He says that there was an itchy rash, but he applied bag balm. No new exposures. ROS: Constitutional: No unexplained weight loss, fever, chills, fatigue or night sweats. Eyes: Denies vision change or eye pain Respiratory: No shortness of breath, cough or sputum production. Cardiovascular: No chest pain, chest pressure or chest discomfort. No palpitations or pedal edema. Neurologic: Denies slurred speech, numbness, tingling, weakness, dizziness or syncope. See HPI Gastrointestinal: No anorexia, nausea, vomiting or diarrhea. No abdominal pain or blood in stool. Genitourinary: No dysuria, hematuria, urinary frequency. Skin: See HPI Physical exam: Constitutional: Alert, in no distress. Neck: Supple, Full range of motion. No lymphadenopathy. Respiratory: Clear to auscultation. Cardiovascular: S1 S2 regular. No murmurs. Abdomen: Soft, nontender, no palpable masses, rebound or guarding. Back: No CVA tenderness Skin: Excoriated papules on the forearms. No weeping, discharge or swelling. Extremities: Warm and well perfused. No clubbing, cyanosis or edema. Psychiatric: Normal mood and affect COUNTS INCLUDE 234 BEDS AT [facility] Medical History (Updated 01/22/25 @ 12:12 by GHAZAL Steinberg) Tachycardia Brain fog Left shoulder pain Bilateral shoulder pain Chest pain Hospital discharge follow-up Shingles Mild cognitive impairment Vertigo Pancytopenia Gastric ulcer Memory loss Bilateral hearing loss Bilateral tinnitus Lung nodule Anemia Prostate cancer Osteoporosis History of diverticulitis Wound dehiscence Dizziness Type 2 diabetes mellitus HLD (hyperlipidemia) CAD (coronary artery disease) Surgical History Hx of bladder repair surgery Knee joint replacement status History of coronary artery stent placement History of colostomy reversal Social History (Updated 01/22/25 @ 11:49 by Erin Machuca CMA) Household Members: None Housing: Apartment Alcohol intake: former Patient Tobacco Use Status: Former Tobacco user Cigarette Packs Per Day: 1 Years Smoked: 14 Packs Per Year: 14 e-Cigarette/Vaping Use: Never Used Second Hand Smoke Exposure: No Use of substances other than those prescribed or required for medical reasons: No service: No Current occupational status: retired Current occupational exposures/hazards: No Gender identity: Male Cognitive needs: Yes (Memory issues) Hearing needs: Yes (Hearing loss ) Vision needs: Yes (glasses) Questionnaire Thrive Questionnaire Date Thrive assessed: 08/31/24 I am a: Patient What is your living situation today?: I have a steady place to live Within the past 12 months, did the food you bought not last and you didn't have the money to get more?: I choose not to answer this question Within the past 12 months, did you worry whether your food would run out before you got money to buy more?: I choose not to answer this question Do you have trouble paying for medicines?: I choose not to answer this question Do you have trouble getting transportation to medical appointments?: I choose not to answer this question Do you have trouble paying your heating and electricity bill?: I choose not to answer this question Do you have trouble taking care of your child, family member or friend?: I choose not to answer this question Do you have trouble with day-to-day activities such as bathing, preparing meals, shopping, managing finances, etc.?: I choose not to answer this question Are you currently unemployed and looking for a job?: I choose not to answer this question Are you interested in more education?: I choose not to answer this question Please select the resources that you would like help with: None Currently or been in a relationship where the following occur: I choose not to answer THRIVE Score: 0 NINA-7 AMB Questionnaire NINA-7 Date NINA - 7 assessed: 08/31/24 Source: Developed by Drs. Ryan López, Emily Hernandez, Jordan Kuhn and colleagues, with an educational katy from [employer]. Physical exam (Primary Care) Vital Signs: Last Vital Signs Temp 97.8 F 01/22/25 11:49 Pulse 118 H 01/22/25 12:04 Resp 15 01/22/25 11:49 BP 116/60 01/22/25 11:49 Pulse Ox 97 01/22/25 12:04 Oxygen Delivery Method Room Air 01/22/25 11:49 BMI result Body Mass Index 27.1 Tobacco/Smoking Status: Tobacco use Status Tobacco use date assessed 01/22/25 01/22/25 11:53 Patient Tobacco Use Status Former Tobacco user 01/22/25 11:49 e-Cigarette/Vaping Use Never Used 01/22/25 11:49 Thrive Assessment: Date of Thrive Assessment Date Thrive assessed 08/31/24 01/22/25 11:45 Currently or been in a relationship where the following occur: I choose not to answer Office Procedures EKG Details: EKG shows sinus tachycardia, left axis deviation. Ventricular rate 118 beats per minute. Reviewed by Dr. Delgadillo. [id number], Complete Glucose Monitoring Details Details: [id number] - Glucose Monitoring, continuous Procedure code (CPT) selection complete Results AMB Hemoglobin A1c AMB Hemoglobin A1c 6.6 % Last Edit by Erin Machuca CMA on 01/22/25 11:54 Results Reviewed Results Reviewed: Laboratory Last Values Hgb A1c (Clinic) 6.6 % (4.0-6.0) H 01/22/25 11:53 Coding Level of Care Code Est Pt Level 4 (72161) Complex visit Add On G2211 Diagnoses Type 2 diabetes mellitus with other specified complication, without long-term current use of insulin E11.69 Diabetes mellitus complication status: with other specified complication Diabetes mellitus [facility] insulin use: without terminal block assembler use Coronary artery disease involving [place] coronary artery of [place] heart without angina pectoris I25.10 Coronary Disease-Associated Artery/Lesion type: [place] artery [place] vs. transplanted heart: [place] heart Associated angina: without angina Pure hypercholesterolemia E78.00 Hyperlipidemia type: pure hypercholesterolemia Prostate cancer C61 Mild cognitive impairment G31.84 CPT Codes EKG - CPT: 77183-[id number], Complete ([id number]) Details - CPT: 10721 - Glucose Monitoring, continuous ([id number]) Assessment & Plan Assessment & Plan (1) Type 2 diabetes mellitus: Code(s): E11.9 - Type 2 diabetes mellitus without complications Category: Medical Qualifiers: Diabetes mellitus complication status: with other specified complication Diabetes mellitus terminal block assembler insulin use: without terminal block assembler use Qualified Code(s): E11.69 - Type 2 diabetes mellitus with other specified complication (2) CAD (coronary artery disease): Code(s): I25.10 - Atherosclerotic heart disease of [place] coronary artery without angina pectoris Category: Medical Qualifiers: Coronary Disease-Associated Artery/Lesion type: [place] artery [place] vs. transplanted heart: [place] heart Associated angina: without angina Qualified Code(s): I25.10 - Atherosclerotic heart disease of [place] coronary artery without angina pectoris (3) HLD (hyperlipidemia): Code(s): E78.5 - Hyperlipidemia, unspecified Category: Medical Qualifiers: Hyperlipidemia type: pure hypercholesterolemia Qualified Code(s): E78.00 - Pure hypercholesterolemia, unspecified (4) Prostate cancer: Code(s): C61 - Malignant neoplasm of prostate Category: Medical (5) Mild cognitive impairment: Code(s): G31.84 - Mild cognitive impairment of uncertain or unknown etiology Category: Medical Plan Continue Jardiance. Diabetes is well-controlled. Continue rosuvastatin for hyperlipidemia. Patient is followed by Cardiology. Tolerating increased dose of metoprolol for tachycardia. He is mildly tachycardic today but denies symptoms. EKG showed sinus tachycardia. Stressed the importance of hydration with the patient. Check TSH and electrolytes. Followed by urology. No known recurrence of prostate cancer. Osteoporosis-continue Fosamax. Cognitive impairment-he was referred to the [facility] memory clinic to discuss medication options. He was not sure if he had an appointment there yet. I will see if there are any records available. He will have labs to rule out underlying causes for brain fog, but this could be related to his medications or mild cognitive decline. L follow up in 3 months. Orders: Orders Vitamin B12 and Folate Today D64.9 - Anemia, unspecified, R41.89 - Other symptoms and signs involving cognitive functions and awareness Urine Culture Today R39.9 - Unspecified symptoms and signs involving the genitourinary system, R41.89 - Other symptoms and signs involving cognitive functions and awareness Magnesium Today R41.89 - Other symptoms and signs involving cognitive functions and awareness AMB Hemoglobin A1c Today E11.69 - Type 2 diabetes mellitus with other specified complication TSH reflex Free T4 Today R41.89 - Other symptoms and signs involving cognitive functions and awareness Complete Blood Count Auto Diff Today R41.89 - Other symptoms and signs involving cognitive functions and awareness UA w Microscopic Today R39.9 - Unspecified symptoms and signs involving the genitourinary system, R41.89 - Other symptoms and signs involving cognitive functions and awareness Comprehensive Met. Panel Today R41.89 - Other symptoms and signs involving cognitive functions and awareness IRON PROFILE Today D64.9 - Anemia, unspecified, R41.89 - Other symptoms and signs involving cognitive functions and awareness Ferritin Today D64.9 - Anemia, unspecified, R41.89 - Other symptoms and signs involving cognitive functions and awareness Vitamin D 25-OH (D2 and D3) Today M85.80 - Other specified disorders of bone density and structure, unspecified site AMB EKG-In Office Today R00.0 - Tachycardia, unspecified AMB Glucose Monitoring Today E11.9 - Type 2 diabetes mellitus without complications Medications: New bacitracin 1 appl topical TID 14.2 grams 0RF
[2025-01-22 11:49] VITALS: BP 116/60; PULSE 125; RESP 15; TEMP 36.6; O2SAT 97; BMI 27.1
[2025-01-22 12:04] VITALS: PULSE 118; O2SAT 97
--- OUTSIDE RECORDS SUMMARY | 2025-01-22 15:18 | XMS_ITS | Clinical Summary ---
Author Organization [facility] Address [address] [place] [address] Phone Care Team Providers Care Solar Energy Consultant And Designer Name Role Phone Barbie Rico Primary Care Provider Allergies Active Allergy Reactions Criticality Noted Date Comments Codeine Nausea And Vomiting 03/18/2021 Morphine Nausea And Vomiting 03/18/2021 Penicillins 03/18/2021 Other Reaction(s): Rash/Dermatitis As a child, rash, tolerates cefazolin Medications empagliflozin (Jardiance) 10 mg tablet Take by mouth. 4 Active alendronate (FOSAMAX) 70 mg tablet Take 1 tablet (70 mg total) by mouth every 7 (seven) days. Active CHOLECALCIFEROL, VITAMIN D3, ORAL Take 1 tablet by [...] 2 (two) times a day. 2 Active telmisartan (MICARDIS) 80 mg tabletIndication s:Coronary artery disease involving [place] coronary artery of [place] heart without angina pectoris Take 1 tablet (80 mg total) by mouth 1 (one) time each day. Active omeprazole (PriLOSEC) [address] capsule Take 1 capsule (20 mg total) by mouth 1 (one) time each day. Do not crush or chew. Active clopidogreL (PLAVIX) 75 mg tablet Take 1 tablet by mouth once daily 90 tablet 1 5 Active isosorbide mononitrate (IMDUR) 30 mg 24 hr tablet TAKE 1 TABLET BY MOUTH ONCE DAILY.DO NOT CRUSH OR CHEW. 90 tablet 2 5 Active rosuvastatin (CRESTOR) 20 mg tablet Take 1 tablet by mouth once daily 90 tablet 1 5 Active metoprolol succinate (TOPROL-XL) 50 mg 24 hr tablet Take 1 tablet (50 mg total) by mouth 1 (one) time each day. Do not crush or chew. 90 tablet 2 5 Active nitroglycerin (NITROSTAT) 0.4 mg SL tablet DISSOLVE ONE TABLET UNDER THE TONGUE EVERY 5 MINUTES NEEDED FOR CHEST PAIN. DO NOT EXCEED A TOTAL OF 3 DOSES IN 15 MINUTES 100 tablet 5 Active ranolazine (RANEXA) 500 mg 12 hr tabletIndication s:Atheroscleroti c heart disease of [place] coronary artery with other forms of angina pectoris (CMS/HCC V24) Take 1 tablet by mouth twice daily 180 tablet 1 5 Active Active Problems Problem Noted Date Diagnosed Date Sinus tachycardia 09/11/2024 Assessment & Plan (12/13/2024 2:38 PM EDT): Has had sinus tachycardia in past with more recent sinus bradycardia on metoprolol 50 mg daily. He has been asymptomatic and therefore we will accept he does run tachy and adan from time to time. Assessment & Plan (09/11/2024 3:10 PM EDT): [...] Future Pure hypercholesterolemia 05/24/2024 Assessment & Plan (12/13/2024 2:38 PM EDT): Continue with rosuvastatin. Assessment & Plan (09/11/2024 3:10 PM EDT): [...] Symptomatic bradycardia 12/24/2022 Overview (01/25/2024): Admitted to [facility] with symptomatic bradycardia - likely related [...] RCA ISR being negative Assessment & Plan (12/13/2024 2:38 PM EDT): Recent angiogram showing ISR of previous stents but with iFR negative assessment of RCA stent. Echocardiogram from November 2022 showed preserved LV systolic function. Medical therapy recommended with stable symptoms. Given evidence of ISR in multiple stents in the future consider fish oil and colchicine. Continue with aspirin, clopidogrel, empagliflozin, isosorbide, metoprolol, telmisartan and ranolazine. We discussed risk reduction through lifestyle choices including healthy diet, routine exercise and weight management. Assessment & Plan (09/11/2024 3:10 PM EDT): [...] 06/30/2021 Primary hypertension 03/18/2021 Assessment & Plan (12/13/2024 2:38 PM EDT): Controlled. Continue with metoprolol, isosorbide, telmisartan. We discussed risk reduction through lifestyle choices including healthy diet, routine exercise and weight management. Assessment & Plan (09/11/2024 3:10 PM EDT): [...] Encounters Date Type Department Care Team Description 12/13/2024 1:40 PM EDT Office Visit [facility] Cardiology [facility] [address] [facility] [address] [place] [address] Palomo Ochoa NP Coronary artery disease involving [place] coronary artery of [place] heart with angina pectoris (CMS/HCC V24) (Primary Dx); Primary hypertension; Pure hypercholesterolemia; Sinus tachycardia 10/27/2024 Telephone [facility] Cardiology [facility] [address] [place] [address] Palomo Ochoa NP 10/27/2024 Telephone [facility] [address] [place] [address] Palomo Ochoa NP from Last 3 Months Surgical History Surgery Date Site/Laterality Comments BACK SURGERY PROCEDURE: HISTORICAL BACK SURGERY OTHER SURGICAL HISTORY PROCEDURE: NC COLECTOMY PARTIAL W/ANASTOMOSIS OTHER SURGICAL HISTORY PROCEDURE: HISTORY OTHER; COMMENT: knee replacement OTHER SURGICAL HISTORY PROCEDURE: HISTORY OTHER; COMMENT: bladder repair CARDIAC CATHETERIZATION DONE ON 07/25/2024 AT [facility] INDICATIONS: Unstable angina Medical History Medical History Date Comments DDD (degenerative disc disease), lumbar DX:DDD (degenerative disc disease), lumbar Diabetes ([facility] V24, CMS/HCC V28) DX:Diabetes (HCC) Dyspnea, unspecified [...] Years Used Date Smoking Tobacco: Former Cigarettes 1 Q uit: 03/01/1977 Smokeless Tobacco: Never Alcohol [...] Sign Reading Time Taken Comments Blood Pressure 132/84 12/13/2024 1:32 PM EDT Pulse 101 12/13/2024 1:32 PM EDT Temperature - - Respiratory Rate - - Oxygen Saturation 93% 12/13/2024 1:32 PM EDT Inhaled Oxygen Concentration - - Weight 78.5 kg (173 lb) 12/13/2024 1:32 PM EDT Height 170.2 cm (5' 7 ) 12/13/2024 1:32 PM EDT Body Mass Index 27.1 12/13/2024 1:32 PM EDT Plan of Treatment Health Maintenance Due Date Last Done Comments [...] 01/27/2022 Hypertension/CHF/CAD Annual BMP Blood Test 02/08/2022 Diabetes: Annual Urine Albumin-Creatinine Ratio (uACR) 01/07/2024 Diabetes: Blood Sugar Contro l Test (HGBA1C) 01/07/2024 Depression Screening 03/01/2024 COVID-19 Vaccine (4 - 2024-2 6 season) 2024 07/23/2021, 07/24/2020, 06/26/2020 Influenza Vaccine (#1) 2024 04/17/2021 Pneumococcal Vaccine: [...] topic Insurance [employer] [address] [place] [address] Care Teams Solar Energy Consultant And Designer Relationship Specialty Start Date End Date Barbie Rico PA [address] [place] [address] PCP - General 12/23/23
== END 2025-01-22 12:45 | disposition home or self-care (01) ==
LOC: HO.HMCFM 11:32
PROVIDERS: PCP Physician Assistant Medical; Visit Provider Physician Assistant Medical
DX: E11.69 Type 2 diabetes mellitus with other specified complication (principal); I25.10 Atherosclerotic heart disease of native coronary artery without angina pectoris; E78.00 Pure hypercholesterolemia, unspecified; C61 Malignant neoplasm of prostate; G31.84 Mild cognitive impairment of uncertain or unknown etiology

== ENCOUNTER 2025-02-12 11:00 | Outpatient (RCR) | payer MEDICARE, SELFPAY ==
[2025-01-22 09:01] VITALS: BP 141/76; PULSE 109
--- NOTE | 2025-01-22 09:47 | MHC.PT.EP ---
[facility] [place] Office [place] Office [place] Office [address] Manuel Palmer [address] [phone] F: [phone] F: [phone] F: [phone] F: [phone] Physical Therapy Plan of Care Date of Evaluation: 01/22/25 Date of Surgery: NA Diagnosis: Pain in L shoulder Assessment: Artemio is a 84 year old male who is referred to PT for pain in L shoulder . He reports of having pain in L shoulder for several years. He was recommended surgery several years back but refused it. He denies having any trauma or falls. On PT examination he presents with no TTP, 3-10/10 pain with L shoulder abduction plane and L SL, decreased L shoulder ROM, decreased L shoulder and scap strength and altered posture. He lives alone and is independent with all ADLS but modifies them. He would benefit from skilled PT to address the aforementioned impairments and improve tolerance to functional activities. Frequency and Duration: The patient will be seen 2/week for 5 weeks Short Term Goals: 1. Pt will have 50% decrease in pain which will enable him to tolerate sleeping on L side in 2 weeks 2. Pt will be able to move L shoulder through all planes of motion with a pain no more than 1/10 which will enable him to use upper body for dressing in 3 weeks Nursing Home Goals: 1. Pt will demonstrate an increase in muscle strength by 1 grade which will enable him to use B UE equally for ADLS in 5 weeks 2. Pt will be independent with all HEP for symptom management and maintenance following d/c in 5 weeks. Treatment Plan: Modalities to reduce pain, spasms and effusion. Manual therapy to restore motion and function. Therapeutic exercise to improve strength and flexibility. Neuromuscular re-education for posture and balance. Therapeutic activities to return to functional activities of daily living. Electronically signed by: Ayala Landeros PT DPT Please sign and return to therapist. Thank you for your referral.
[2025-01-22 14:23] LABS: Appearance Urine Clear; Glucose Urine UA >=1000 mg/dL (Negative); PH 5.0 (5.0-9.0); Specific Gravity - Urine >= 1.030 (1.005-1.025); UMIC TRIGGER UA YES
[2025-01-22 14:25] LABS: MANUAL DIFF FLAG NO
[2025-01-22 14:35] LABS: Hematocrit 38.4 % (42.0-52.0); Hemoglobin 12.7 g/dl (14.0-18.0); Imm Gran Abs Auto 0.03 X10*3/uL (0.00-0.03); Imm Gran Pct Auto 0.6 % (0.0-0.4); Lymphocytes Absolute Auto 0.8 X10*3/uL (1.2-4.9); Mean Corpuscular HGB Conc 33.1 g/dl (31.0-36.0); Mean Corpuscular Hemoglobin 27.5 pg (27.0-33.0); Mean Corpuscular Volume 83.1 fL (80.0-98.0); NRBC Abs Auto 0.000 X10*3/uL (0.0-0.012); NRBC Pct Auto 0.0 /100WBC (0.0-0.2); Platelet Count 150 X10*3/uL (160-400); Red Blood Count 4.62 X10*6/uL (4.60-5.80); White Blood Count 5.1 X10*3/uL (4.8-10.8)
[2025-01-22 15:58] LABS: Folate 14.0 ng/mL (> or = 4.0); Vitamin B12 539 pg/mL (200-900)
[2025-01-22 16:04] LABS: Microalbum/Creatinine Ratio Ur 13.6 ug/mg cr (<30)
[2025-01-22 16:37] LABS: Ferritin 19 ng/mL (20-250)
[2025-01-22 16:48] LABS: Anion Gap 14 (12-20)
[2025-01-22 16:53] LABS: Alanine Aminotransferase 19 U/L (0-40); Albumin Level 4.7 g/dL (3.5-5.0); Alkaline Phosphatase 70 U/L (39-117); Aspartate Amino Transferase 19 U/L (5-37); Blood Urea Nitrogen 23 mg/dL (9-16); Calcium 9.5 mg/dL (8.4-10.2); Carbon Dioxide 24 mmol/L (22-29); Chloride 107 mmol/L (96-108); Estimated Glomerular Filt Rate > 60; Iron 79 mcg/dL (45-160); Magnesium 2.0 mg/dL (1.6-2.6); Percent Iron Saturation 23 % (15-50); Potassium 4.0 mmol/L (3.3-5.1); Sodium 141 mmol/L (135-145); Total Iron Binding Capacity 337 mcg/dL (228-428); Total Protein 6.9 g/dL (6.5-8.0); Unsaturated Iron Binding 258 ug/dL
[2025-01-27 12:53] LABS: Vitamin D 25-OH, D2 <4 ng/mL; Vitamin D 25-OH, D3 47 ng/mL; Vitamin D 25-OH, Total 47 ng/mL (30-100)
--- NOTE | 2025-02-27 14:23 | MHC.PT.DC ---
[facility] [place] Office [place] Office [place] Office [address] Manuel Palmer [address] [phone] F: [phone] F: [phone] F: [phone] F: [phone] Physical Therapy Discharge Report Diagnosis: Pain in L shoulder Date of Surgery: NA Date of Evaluation: 01/22/25 Date of Discharge: 02/27/25 Treatments to Date: 3 Cancellations to Date: 3 No Shows to Date: 3 Discharge Status: Visit Non-compliance Discharge Summary: Artemio attended 2 PT visits after his evaluation. He canceled 3 and no showed 3. He is therefore being d/c from PT. Electronically signed by: Ayala Landeros PT DPT Please sign and return to therapist. Thank you for your referral.
== END 2025-02-27 14:23 | disposition home or self-care (01) ==
LOC: HO.PT 11:00
PROVIDERS: PCP Physician Assistant Medical; Visit Provider Physician Assistant Medical
DX: M25.512 Pain in left shoulder (principal); G89.29 Other chronic pain; E11.9 Type 2 diabetes mellitus without complications; D64.9 Anemia, unspecified; R41.89 Other symptoms and signs involving cognitive functions and awareness; M85.80 Other specified disorders of bone density and structure, unspecified site; R39.9 Unspecified symptoms and signs involving the genitourinary system
CPT/HCPCS: 36415; 80053; 81001; 82043; 82306; 82570; 82607; 82728; 82746; 83540; 83735; 84443; 85025; 87086; 97110; 97140; 97161